=== PATIENT | female | born 1980 | race Caucasian/White ===

== ENCOUNTER 2020-10-25 08:18 | Emergency (ER) | payer OTHER, SELFPAY ==
--- NOTE | ~2020-10-25 | XR_ITS ---
EXAMINATION: XR toe 1st RT min 2V EXAM DATE: 10/25/2020 08:36 INDICATION: Hyperflexion injury, right 1st phalangeal pain. Initial encounter. TECHNIQUE: Right 1st finger frontal, lateral and oblique projections obtained and reviewed. There is no prior study for comparison. FINDINGS: There is acute closed posttraumatic oblique fracture through the head and neck of the right 1st proximal phalanx, into the interphalangeal joint. There is overlying soft tissue swelling. IMPRESSION: Right 1st proximal phalangeal head and neck nondisplaced intra-articular fracture. Reviewed, dictated and finalized at location A. IMPRESSION: Right 1st proximal phalangeal head and neck nondisplaced intra-art icular fracture.
[2020-10-25 08:30] VITALS: BP 135/87; PULSE 90; RESP 16; TEMP 36.6; O2SAT 99
--- NOTE | 2020-10-25 08:36 | ED.LOWEXIN ---
HPI - Extremity Injury (Lower) General Chief Complaint: Extremity Injury, Lower Stated Complaint: right foot injury Time Seen by Provider: 10/25/20 08:36 Source: patient and RN notes reviewed History of Present Illness HPI Narrative: Patient is a 40-year-old female who presents the urgent care with complaints of right great toe pain and bruising. Patient states that yesterday she tripped to running after her son and hit her daughter's hover board. Patient states that she has been elevating and using ice with Aleve. No other acute complaints. No acute distress noted. Patient aware of the plan of care. Some parts of this dictation were generated by voice recognition software and may contain typographical and/or grammatical inaccuracies. Related Data Allergies Allergy/AdvReac Type Severity Reaction Status Date / Time Influenza Virus Vaccines AdvReac Unknown Other Verified 10/25/20 08:42 Review of Systems Review of Systems: Narrative: CONSTITUTIONAL: Denies fever, chills, or sweats. EYES: Denies visual changes, redness, or discharge. ENT: Denies rhinorrhea, congestion, sore throat, or otalgia. CARDIOVASCULAR: Denies chest pain, palpitations, or edema. RESPIRATORY: Denies cough or dyspnea. GASTROINTESTINAL: Denies abdominal pain, nausea, vomiting, or diarrhea. GENITOURINARY: Denies dysuria or hematuria. SKIN: Denies rash or itching. MUSCULOSKELETAL: Reports of right great toe pain and bruising from fall NEUROLOGIC: Denies headache, numbness, or weakness. All other systems reviewed are negative, except as documented in HPI. PMFSH Comments At the time of my signature, I reviewed and agree with the nursing past medical, surgical, social, and family history. There is no relevant family history pertinent to the patient complaint. Exam Narrative: Exam Narrative: GENERAL: This is a well-nourished, well-developed patient, in no apparent distress. HEAD: normocephalic, atraumatic. EYES: PERRL. Sclera clear/white. Vision is grossly intact. EARS: External ears normal NOSE: External nose normal with no obvious nasal discharge, nares without redness, no rhinorrhea. THROAT: Mucous membranes moist NECK: Neck supple CARDIOVASCULAR: Regular rate and rhythm without murmurs, gallops, or rubs. RESPIRATORY: Clear to auscultation. Breath sounds equal bilaterally. No wheezes, rales, or rhonchi. SKIN: warm, intact with no suspicious lesions or rash, good texture and turgor. NEURO: awake, alert, and oriented to person, place and time. There were no obvious focal neurologic abnormalities. EXTREMITIES: Moderate ecchymosis and mild edema noted to the MCP to the distal right great toe. Positive strong right pedal pulse with capillary refill less than 2 seconds. Course Vital Signs Vital signs: Vital Signs Temperature 98 F 10/25/20 08:30 Pulse Rate 90 10/25/20 08:30 Respiratory Rate 16 10/25/20 08:30 Blood Pressure 135/87 10/25/20 08:30 Pulse Oximetry 99 10/25/20 08:30 Temperature 98 F 10/25/20 08:30 Pulse Rate 90 10/25/20 08:30 Respiratory Rate 16 10/25/20 08:30 Blood Pressure 135/87 10/25/20 08:30 Pulse Oximetry 99 10/25/20 08:30 Reviewed Procedures Other Procedure Procedure 1: Other Procedure: Ricardo wrap and postop shoe applied to the right foot. MDM - Extremity Injury (Lower) MDM Narrative Medical decision making narrative: Reviewed x-ray results with the patient. She is aware that x-ray was positive for a fracture. Advised the patient to wear the postop shoe as directed. Follow-up with the referred orthopedic today regarding a future appointment. Use Tylenol/tramadol as needed for pain. Be sure you are eating and drinking with the medications. Avoid any strenuous activity with long periods of time on your feet. Follow-up with your PCP within 2 to 5 days or for worsening symptoms or failure to improve. Differential Diagnosis Differential diagnosis: Likely ankle sprain and strain, fracture of hip,
--- NOTE | 2020-10-25 08:38 | PC.NURSE ---
PT DECLINED ICE FOR COMFORT AND WHEELCHAIR TO RADIOLOGY
--- NOTE | 2020-10-25 08:42 | PC.NURSE ---
PT DECLINED WHEELCHAIR TO RADIOLOGY
== END 2020-10-25 09:10 | disposition home or self-care (01) ==
PROVIDERS: Emergency Provider Nurse Practitioner Family; PCP Physician Assistant
DX: S92.414A Nondisplaced fracture of proximal phalanx of right great toe, initial encounter for closed fracture (principal); W18.30XA Fall on same level, unspecified, initial encounter; Y93.02 Activity, running
CPT/HCPCS: 73660; 99214; G0463

== ENCOUNTER 2022-06-07 13:43 | Emergency (ER) | payer OTHER, SELFPAY ==
--- NOTE | 2022-06-07 13:53 | ED.SKABFB ---
HPI - Skin/Abscess/Foreign Bdy General Chief complaint: Skin/Abscess/Foreign Body Stated complaint: Skin Problem Time Seen by Provider: 06/07/22 14:00 Source: patient Mode of arrival: ambulatory Limitations: no limitations History of Present Illness HPI narrative: Ms. Burrows is a 41-year-old female patient presenting to the clinic today with complaints of possible abscess to her genital area. She reports this has been going on for a few days but has gradually got bigger today. She denies any fever or chills. Related Data Allergies Allergy/AdvReac Type Severity Reaction Status Date / Time No Known Allergies Allergy Verified 06/07/22 14:05 Review of Systems Review of Systems: Pertinent positives per HPI. Patient denies any fever, chills, rash, headache, visual changes, dizziness, cough, runny nose, sore throat, shortness of breath, chest pain, palpitations, nausea, vomiting, diarrhea, constipation, abdominal pain, or any urinary issues. PMFSH Comments At the time of my signature, I reviewed and agree with the nursing past medical, surgical, social, and family history. There is no relevant family history pertinent to the patient complaint. Exam Narrative: General: Well-developed, well nourished, in no apparent distress Head: Normocephalic, atraumatic. Cardio: Regular rate and rhythm, s1 and s2 normal, no murmur appreciated. Resp: Clear to auscultation bilaterally, no rhonchi, rales, wheezing or rubs. Integumentary: [place], warm, and dry, abscess measuring 2 x 1-1/2 to the right inner thigh near the fold of the groin. Tender to palpation with erythema and induration. Has pustule head. Incision and drainage performed Course Course Emergency Course: Portions of this record may have been created with voice recognition software. Level of Care: Express Care Visit Vital Signs Vital signs: Vital Signs Temperature 36.7 C 06/07/22 13:56 Pulse Rate 92 06/07/22 13:56 Respiratory Rate 18 06/07/22 13:56 Blood Pressure 123/80 06/07/22 13:56 Pulse Oximetry 100 06/07/22 13:56 Oxygen Delivery Room Air 06/07/22 13:56 Temperature 36.7 C 06/07/22 13:56 Pulse Rate 92 06/07/22 13:56 Respiratory Rate 18 06/07/22 13:56 Blood Pressure 123/80 06/07/22 13:56 Pulse Oximetry 100 06/07/22 13:56 Oxygen Delivery Room Air 06/07/22 13:56 Vital signs reviewed Procedures Abscess I/D lower extremity: Date of Incision: 06/07/22 Side (if applicable): right Local Anesthetic: lidocaine 1% Amount of anesthesia used (mL): 4 Technique: incised with #15 blade Amount of fluid expressed (mL): 2 Irrigation: No Packing used?: none I&D Results: Pus and Blood Complications: pain Abcess I&D Additional Comments: Verbal consent obtained for incision and drainage. Risk and benefits explained and patient voiced understanding. Area was cleansed with technique air. Area was prepped and draped using sterile technique. 25 gauge needle was then used to instill ( 4) ml of lidocaine with epi into the wound edges. Patient tolerated well and anesthesia was appropriate. An 15 blade scalpel was then used to make a 0.5cm incision over the abscess. White bloody exudate expressed from cavity. Wound culture obtained and sent to lab. Patient tolerated procedure well. MDM - Skin/Abscess/Foreign Bdy MDM Narrative Medical decision making narrative: At the time of visit patient is resting comfortably on the exam table. incision and drainage of small abscess to the right inner groin/thigh. prescription for Bactrim DS was sent to the pharmacy. culture was obtained and sent to the lab. Supportive measures were discussed with the patient she voiced understanding discharge instructions agrees to treatment plan. Differential Diagnosis Differential diagnosis: Likely abscess of skin or subcutaneous tissue Discharge Plan Discharge Clinical Impression: Abscess of skin
[2022-06-07 13:56] VITALS: BP 123/80; PULSE 92; RESP 18; TEMP 36.7; O2SAT 100
== END 2022-06-07 14:25 | disposition home or self-care (01) ==
PROVIDERS: Emergency Provider Nurse Practitioner Family; PCP Physician Assistant
DX: L02.214 Cutaneous abscess of groin (principal)
CPT/HCPCS: 10060; 87070; 87205; 99213; G0463

== ENCOUNTER 2022-06-12 11:34 | Emergency (ER) | payer OTHER, SELFPAY ==
--- NOTE | 2022-06-12 11:36 | ED.URI ---
HPI - URI/Sore Throat General Chief Complaint: Upper Respiratory Infection Stated Complaint: cold flu Time Seen by Provider: 06/12/22 11:37 Source: patient and RN notes reviewed History of Present Illness HPI Narrative: patient is a 41-year-old female presents to urgent care with complaints of a sore throat that started last night and then woke up with sweats and watery eyes. Patient has been taking Robitussin and using Chloraseptic. Denies any fevers, nausea or vomiting. No other acute complaints. No acute distress noted. Patient aware of the plan of care. Some parts of this dictation were generated by voice recognition software and may contain typographical and/or grammatical inaccuracies. Related Data Home Medications Medication Instructions Recorded Confirmed No Home Medications 06/12/22 06/12/22 Allergies Allergy/AdvReac Type Severity Reaction Status Date / Time No Known Allergies Allergy Verified 06/12/22 11:51 Review of Systems Review of Systems: CONSTITUTIONAL: reports of chills and sweats EYES: reports of itchy watery eyes ENT: Reports a sore throat, postnasal drainage CARDIOVASCULAR: Denies chest pain, palpitations, or edema. RESPIRATORY: Denies cough or dyspnea. GASTROINTESTINAL: Denies abdominal pain, nausea, vomiting, or diarrhea. GENITOURINARY: Denies dysuria or hematuria. SKIN: Denies rash or itching. MUSCULOSKELETAL: Denies back pain, joint pain, or myalgia. NEUROLOGIC: Denies headache, numbness, or weakness. All other systems reviewed are negative, except as documented in HPI. PMFSH Comments At the time of my signature, I reviewed and agree with the nursing past medical, surgical, social, and family history. There is no relevant family history pertinent to the patient complaint. Exam Narrative: GENERAL: This is a well-nourished, well-developed patient, in no apparent distress. HEAD: normocephalic, atraumatic. EYES: PERRL. Sclera clear/white. Vision is grossly intact. clear drainage bilaterally EARS: External ears normal, auditory canals clear and without drainage, TMs normal without perforation. Hearing grossly intact. NOSE: External nose normal with no obvious nasal discharge, nares without redness, no rhinorrhea. THROAT: Mucous membranes moist, posterior pharynx clear. mild postnasal drainage NECK: Neck supple, non-tender without lymphadenopathy CARDIOVASCULAR: Regular rate and rhythm without murmurs, gallops, or rubs. RESPIRATORY: Clear to auscultation. Breath sounds equal bilaterally. No wheezes, rales, or rhonchi. SKIN: warm, intact with no suspicious lesions or rash, good texture and turgor. NEURO: awake, alert, and oriented to person, place and time. There were no obvious focal neurologic abnormalities. EXTREMITIES: No clubbing, cyanosis, or edema. Course Course Level of Care: Express Care Visit Vital Signs Vital signs: Vital Signs Temperature 97.8 F 06/12/22 11:43 Pulse Rate 83 06/12/22 11:43 Respiratory Rate 14 06/12/22 11:43 Blood Pressure 136/82 06/12/22 11:43 Pulse Oximetry 100 06/12/22 11:43 Oxygen Delivery Room Air 06/12/22 11:43 Temperature 97.8 F 06/12/22 11:43 Pulse Rate 83 06/12/22 11:43 Respiratory Rate 14 06/12/22 11:43 Blood Pressure 136/82 06/12/22 11:43 Pulse Oximetry 100 06/12/22 11:43 Oxygen Delivery Room Air 06/12/22 11:43 reviewed MDM - URI/Sore Throat MDM Narrative Medical decision making narrative: reviewed lab results with the patient. She is aware that flu and strep swabs were both negative. Educated mother on culture we will call within 72 hours if culture is positive antibiotics are necessary. Advised patient to use Tylenol/ ibuprofen as needed. Symptoms are consistent with viral upper respiratory infection. Use [id number] medication for relief such as Benadryl/ Zyrtec/ Claritin/Flonase. Use a humidifier at night. Follow-up with your PCP within 2-5 days or for worsening symptoms
[2022-06-12 11:43] VITALS: BP 136/82; PULSE 83; RESP 14; TEMP 36.6; O2SAT 100
== END 2022-06-12 12:20 | disposition home or self-care (01) ==
PROVIDERS: Emergency Provider Nurse Practitioner Family; PCP Physician Assistant
DX: J06.9 Acute upper respiratory infection, unspecified (principal)
CPT/HCPCS: 87081; 87804; 87880; 99213; G0463

== ENCOUNTER 2022-09-14 18:10 | Emergency (ER) | payer OTHER, SELFPAY ==
[2022-09-14 18:14] VITALS: BP 141/81; PULSE 103; RESP 20; TEMP 36.8; O2SAT 100
--- NOTE | 2022-09-14 18:26 | ED.EYEPROB ---
HPI - Eye Problem General Chief complaint: Eye Problems Stated complaint: swelling and pain in right eye History of Present Illness HPI Narrative: PATIENT PRESENTS STATING THAT SHE GOT SOMETHING IN HER EYE LAST NIGHT. PATIENT STATES SHE THINKS SHE GOT A PIECE OF GRAVEL OR SOMETHING IN HER RIGHT EYE LAST NIGHT. PATIENT STATES SHE IRRIGATED HER EYE LAST NIGHT AND FELT FINE BUT WAS SWOLLEN AND RED THIS MORNING. PATIENT DOES NOT WEAR CONTACTS OR GLASSES Related Data Allergies Allergy/AdvReac Type Severity Reaction Status Date / Time No Known Allergies Allergy Verified 09/14/22 18:23 Review of Systems Review of Systems: CONSTITUTIONAL: DENIES FEVER, CHILLS, OR SWEATS. EYES: DENIES VISUAL CHANGES, REDNESS, OR DISCHARGE. ENT: DENIES RHINORRHEA, CONGESTION, SORE THROAT, OR OTALGIA. CARDIOVASCULAR: DENIES CHEST PAIN, PALPITATIONS, OR EDEMA. RESPIRATORY: DENIES COUGH OR DYSPNEA. GASTROINTESTINAL: DENIES ABDOMINAL PAIN, NAUSEA, VOMITING, OR DIARRHEA. GENITOURINARY: DENIES DYSURIA OR HEMATURIA. SKIN: DENIES RASH OR ITCHING. MUSCULOSKELETAL: DENIES BACK PAIN, JOINT PAIN, OR MYALGIA. NEUROLOGIC: DENIES HEADACHE, NUMBNESS, OR WEAKNESS. PSYCHIATRIC: DENIES ANXIETY OR DEPRESSION. PMFSH Comments AT TIME OF SIGNATURE, AGREE WITH NURSING PAST MEDICAL, SURGICAL, SOCIAL AND FAMILY HISTORY. THERE IS NO RELEVANT FAMILY HISTORY PERTINENT TO THE PRESENTING COMPLAINT Exam Narrative: GENERAL: WELL-APPEARING, WELL-NOURISHED, AND IN NO ACUTE DISTRESS. HEAD: NORMOCEPHALIC, ATRAUMATIC. EYES: PERRLA AND EOMI. SEE PROCEDURE DOCUMENTATION ENT: NARES CLEAR, NO RHINORRHEA OR EPISTAXIS. MUCOUS MEMBRANES MOIST. NECK: SUPPLE. CHEST: CLEAR TO AUSCULTATION. NO RESPIRATORY DISTRESS. HEART: REGULAR RATE AND RHYTHM. NO MURMUR HEARD. NORMAL PERIPHERAL PULSES. ABDOMEN: SOFT, NONTENDER, NONDISTENDED, NORMAL ACTIVE BOWEL SOUNDS. EXTREMITIES: NORMAL RANGE OF MOTION. NO EDEMA. SKIN: WARM, DRY, NO RASH. NEURO: NO FOCAL DEFICITS. ALERT AND ORIENTED X3. NICOLAS COMA SCALE EYE OPENING: SPONTANEOUS 4 NICOLAS COMA SCALE MOTOR: OBEYS COMMANDS 6 NICOLAS COMA SCALE VERBAL: ORIENTED 5 NICOLAS COMA SCALE TOTAL 15 Course Course Level of Care: Express Care Visit Vital Signs Vital signs: Vital Signs Temperature 36.8 C 09/14/22 18:14 Pulse Rate 103 H 09/14/22 18:14 Respiratory Rate 20 09/14/22 18:14 Blood Pressure 141/81 H 09/14/22 18:14 Pulse Oximetry 100 09/14/22 18:14 Oxygen Delivery Room Air 09/14/22 18:14 Temperature 36.8 C 09/14/22 18:14 Pulse Rate 103 H 09/14/22 18:14 Respiratory Rate 20 09/14/22 18:14 Blood Pressure 141/81 H 09/14/22 18:14 Pulse Oximetry 100 09/14/22 18:14 Oxygen Delivery Room Air 09/14/22 18:14 PLEASE HARDY SCHEDULE A FOLLOWUP VISIT WITH YOUR PERSONAL PHYSICIAN FOR FURTHER EVALUATION AND TREATMENT. INCLUDING RECHECK AND DISCUSSION OF YOUR BLOOD PRESSURE. IF YOUR SYMPTOMS PERSIST, CHANGE OR WORSEN SIGNIFICANTLY BEFORE YOU CAN CONTACT YOUR PERSONAL PHYSICIAN THEN PLEASE, WITHOUT DELAY, GO TO THE EMERGENCY DEPARTMENT FOR FURTHER EVALUATION Procedures FB Removal Eye Foreign Body #1: Topical anesthetic used: tetracaine Technique: irrigation Foreign Body Removal Narrative: PATIENT PLACED IN SUPINE POSITION AND TETRACAINE APPLIED TO RIGHT EYE AND THEN EYE STAINED. EYE EXAMINE WITH MCGRAW LAMP AND CORNEAL ABRASION WAS NOTED TO RIGHT EYE. NO FOREIGN BODY FOUND. PATIENT TOLERATED WELL. Discharge Plan Discharge Clinical Impression: Corneal abrasion Patient Disposition: Home, Self-Care Condition: Stable Instructions: Antibiotic Form, Corneal Abrasion (DC) Additional Instructions: EYEDROPS PRESCRIBED TYLENOL AND IBUPROFEN NEEDED FOR PAIN OR DISCOMFORT FOLLOW-UP WITH FAMILY EYE DOCTOR IN THE NEXT 24-48 HOURS FOR RE-EVALUATION IF ANY NEW OR WORSENING SYMPTOMS GO TO EMERGENCY ROOM IMMEDIATELY FOR FURTHER EVALUATION TREATMENT Prescriptions: New ciprofloxacin HCl 0.3 %
== END 2022-09-14 18:29 | disposition home or self-care (01) ==
PROVIDERS: Emergency Provider Nurse Practitioner Family
DX: S05.01XA Injury of conjunctiva and corneal abrasion without foreign body, right eye, initial encounter (principal); X58.XXXA Exposure to other specified factors, initial encounter
CPT/HCPCS: 99213; A9270; G0463

== ENCOUNTER 2022-10-21 15:39 | Emergency (ER) | payer OTHER, SELFPAY ==
[2022-10-21 15:42] VITALS: BP 131/81; PULSE 90; RESP 20; TEMP 36.7; O2SAT 98
--- NOTE | 2022-10-21 16:50 | ED.GENADULT ---
HPI - General Adult General Chief complaint: Extremity Problem,Nontraumatic Stated complaint: right shoulder pain Source: patient History of Present Illness HPI narrative: 42-year-old female presents to urgent care with complaints of right posterior shoulder pain that radiates down her right arm. Patient states she has been having this pain ever since Friday. 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 Patient denies any specific injury to cause her pain. Denies any posterior neck pain, chest pain, shortness of breath, or vomiting. Patient took 800 mg ibuprofen this morning without relief. Related Data Home Medications Medication Instructions Recorded Confirmed amoxicillin 500 mg capsule mg 10/21/22 clarithromycin 500 mg tablet mg 10/21/22 fluconazole 200 mg tablet mg 10/21/22 ondansetron HCl 4 mg tablet mg 10/21/22 pantoprazole 40 mg tablet,delayed mg PO 10/21/22 release Allergies Allergy/AdvReac Type Severity Reaction Status Date / Time No Known Allergies Allergy Verified 09/14/22 18:23 Review of Systems Review of Systems: CONSTITUTIONAL: Denies fever, chills, or sweats. EYES: Denies visual changes, redness, or discharge. ENT: Denies otalgia and sore throat CARDIOVASCULAR: Denies chest pain, palpitations, or edema. RESPIRATORY: Denies cough or dyspnea. GASTROINTESTINAL: Denies abdominal pain, nausea, vomiting, or diarrhea. GENITOURINARY: Denies dysuria or hematuria. SKIN: Denies rash or itching. MUSCULOSKELETAL: Right posterior shoulder pain NEUROLOGIC: Denies headache, numbness, or weakness. Pertinent positives per HPI. PMFSH Comments At the time of my signature, I reviewed and agree with the nursing past medical, surgical, social, and family history. There is no relevant family history pertinent to the patient complaint. Exam Narrative: GENERAL: This is a well-nourished, well-developed patient, in no apparent distress. HEAD: normocephalic, atraumatic. EYES: Sclera clear/white. Vision is grossly intact. EARS: External ears normal, auditory canals clear and without drainage. Hearing grossly intact. NOSE: External nose normal with no obvious nasal discharge, nares without redness, no rhinorrhea. CARDIOVASCULAR: Regular rate RESPIRATORY: No respiratory distress SKIN: warm, intact with no suspicious lesions or rash, good texture and turgor. NEURO: awake, alert, and oriented to person, place and time. There were no obvious focal neurologic abnormalities. EXTREMITIES: Tenderness to right posterior, inferior,shoulder. Course Course Level of Care: Express Care Visit Vital Signs Vital signs: Vital Signs Temperature 98.1 F 10/21/22 15:42 Pulse Rate 90 10/21/22 15:42 Respiratory Rate 20 10/21/22 15:42 Blood Pressure 131/81 10/21/22 15:42 Pulse Oximetry 98 10/21/22 15:42 Oxygen Delivery Room Air 10/21/22 15:42 Temperature 98.1 F 10/21/22 15:42 Pulse Rate 90 10/21/22 15:42 Respiratory Rate 20 10/21/22 15:42 Blood Pressure 131/81 10/21/22 15:42 Pulse Oximetry 98 10/21/22 15:42 Oxygen Delivery Room Air 10/21/22 15:42 Reviewed Medical Decision Making MDM Narrative Medical decision making narrative: Take steroids as directed. May take muscle relaxers at nighttime. Do not drive while taking muscle relaxers. May take 800 mg of ibuprofen every 8 hours with food. Differential Diagnosis Differential Diagnosis: Cervical radiculopathy, radiculopathy, shoulder strain Vital Signs Vital Signs: Vital Signs Temperature 98.1 F 10/21/22 15:42 Pulse Rate 90 10/21/22 15:42 Respiratory Rate 20 10/21/22 15:42 Blood Pressure 131/81 10/21/22 15:42 Pulse Oximetry 98 10/21/22 15:42 Oxygen Delivery Room Air 10/21/22 15:42 Temperature 98.1 F 10/21/22 15:42 Pulse Rate 90 10/21/22 15:42 Respiratory Rate 20 10/21/22 15:42 Blood Pressure 131/81 10/21/22 15:42 Pulse
[2022-10-21] MEDS: KETOROLAC 30 MG/ML VIAL (*BKC) IM (17:03)
== END 2022-10-21 17:19 | disposition home or self-care (01) ==
PROVIDERS: Emergency Provider Nurse Practitioner Family; PCP Physician Assistant
DX: S46.911A Strain of unspecified muscle, fascia and tendon at shoulder and upper arm level, right arm, initial encounter (principal); X50.0XXA Overexertion from strenuous movement or load, initial encounter; Y99.0 Civilian activity done for income or pay
CPT/HCPCS: 96372; 99213; G0463; J1885

== ENCOUNTER 2023-02-04 13:08 | Emergency (ER) | payer OTHER, SELFPAY ==
--- NOTE | ~2023-02-04 | XR_ITS ---
AP and oblique views of the left ribs Clinical History: Pain Findings: No rib fracture is seen. Osseous alignment is anatomic. Lungs are clear, without focal cons olidation or pleural effusion. Cardiomediastinal contour is within normal limits. Soft tissues are un remarkable. Impression: No rib fracture is seen. Reviewed, dictated and finalized at [facility]. Impression: No rib fracture is seen.
[2023-02-04 13:13] VITALS: BP 127/98; PULSE 78; RESP 18; TEMP 36.4; O2SAT 100
[2023-02-04 13:16] VITALS: BP 127/98; PULSE 78; RESP 18; TEMP 36.4; O2SAT 100
--- NOTE | 2023-02-04 13:34 | PC.NURSE ---
UNABLE TO OFFER ICE FOR COMFORT DUE TO BROKEN ICE MACHINES
--- NOTE | 2023-02-04 13:50 | ED.BACK ---
HPI - Back Pain/Injury General Chief Complaint: Back Pain/Injury Stated Complaint: left side rib pain History of Present Illness HPI Narrative: Pt is a 42 y/o female, presents to with left lateral posterior rib pain that began as she lifted a trailer. she believes she fractured a rib. She has pain with movement, she has no SOB or focal motor weakness. She denies skin rashes. She is taking Ibuprofen for pain with some relief. She denies any other modifying factors or chance of Related Data Allergies Allergy/AdvReac Type Severity Reaction Status Date / Time No Known Allergies Allergy Verified 09/14/22 18:23 Review of Systems Musculoskeletal: Musculoskeletal: Reports as per HPI Exam Narrative: rib imaging unremarkable for acute findings, plan to discharge home with RICE, Ibuprofen at home and Robaxin. Pt is agreeable with plan Const: General: healthy appearing, no acute distress and alert Nutritional Appearance: obese Orientation/consciousness: patient oriented x3 Limitations: no limitations HENMT: Head: normal to inspection Ears: external ears normal and TM's normal bilaterally Face/Nose/Sinus: Normal external nose present and Normal nares present Face and sinus: normal facial exam and sinuses nontender Mouth: Yes Normal oral and palatal mucosa present Teeth and gingiva: dentition normal Throat: posterior oropharynx normal and uvula midline Eyes: Conjunctivae: conjunctivae normal Pupils: Equal, round and reactive pupils present EOM: EOMs intact bilaterally Neck: Neck: normal visual inspection and no lymphadenopathy Chest: Chest palpation & inspection: normal inspection of the chest Other: pt is TTP over the left lateral posteroir ribs, no crepitus or subq emphysema, no deformity, no rash Resp: Effort & Inspection: normal respiratory effort Auscultation: clear to auscultation bilaterally Cardio: Rate: regular rate Rhythm: regular rhythm Back/Spine/Pelvis: Back: no CVA tenderness Other: left chest wall TTP, see above Skin: General skin exam: normal color Rashes: no rashes Neuro: General: patient oriented x3, moves all extremities, no meningeal signs, no focal motor deficits and CN's II-XI intact bilaterally Course Course Level of Care: Express Care Visit ([id number]) Vital Signs Vital signs: Vital Signs Temperature 36.4 C 02/04/23 13:13 Pulse Rate 78 02/04/23 13:13 Respiratory Rate 18 02/04/23 13:13 Blood Pressure 127/98 H 02/04/23 13:13 Pulse Oximetry 100 02/04/23 13:13 Oxygen Delivery Room Air 02/04/23 13:13 Temperature 36.4 C 02/04/23 13:16 Pulse Rate 78 02/04/23 13:16 Respiratory Rate 18 02/04/23 13:16 Blood Pressure 127/98 H 02/04/23 13:16 Pulse Oximetry 100 02/04/23 13:16 Oxygen Delivery Room Air 02/04/23 13:16 MDM - Back Pain/Injury MDM Narrative Medical decision making narrative: imaging unremarkable Differential Diagnosis Differential diagnosis: Likely other (chest wall strain, fracture) Discharge Plan Discharge Clinical Impression: Acute thoracic myofascial strain Qualifiers: Encounter type: initial encounter Qualified Code(s): S29.019A - Strain of muscle and tendon of unspecified wall of thorax, initial encounter Patient Disposition: Home, Self-Care Condition: Stable Instructions: Antibiotic Form, Thoracic Back Strain (ED) Additional Instructions: REST, ICE THE AREA OFF AND ON FOR 2 DAYS, TAKE IBUPROFEN DIRECTED OVER THE COUNTER, ROBAXIN FOR MUSCLE SPASM RELIEF. AVOID HEAVY LIFTING FOR A FEW DAYS OR UNTIL PAIN IMPROVES. FOLLOW UP WITH YOUR PRIMARY CARE PROVIDER IN ONE WEEK IF PAIN IS NOT RESOLVING Prescriptions: New methocarbamol 500 mg tablet 500 mg PO QID PRN (Reason: spasms) Qty: 20 0RF Follow-up/Referrals: Yung,JASPER Noriega [Primary Care Provider] - Stand Alone Forms: Work/School Release IP Time of Disposition: 13:57
== END 2023-02-04 14:05 | disposition home or self-care (01) ==
PROVIDERS: Emergency Provider Nurse Practitioner Family; PCP Physician Assistant
DX: S29.012A Strain of muscle and tendon of back wall of thorax, initial encounter (principal); X50.0XXA Overexertion from strenuous movement or load, initial encounter
CPT/HCPCS: 71100; 99213; G0463

== ENCOUNTER 2023-08-12 11:45 | Emergency (ER) | payer OTHER, MEDICAID, SELFPAY ==
[2023-08-12 11:48] VITALS: BP 123/91; PULSE 79; RESP 20; TEMP 36.4; O2SAT 100
--- NOTE | 2023-08-12 12:46 | ED.EAR ---
HPI - Ear Problem General Chief complaint: Ear Stated complaint: Right Ear Problem Source: patient Mode of arrival: ambulatory Limitations: no limitations History of Present Illness HPI Narrative: 42-year-old female presented for complaint of right ear pain for 3 days. Endorses decreased hearing, ringing, and noted blood to the canal 2 days ago. She used drops from [facility], which she states caused even more pain. Taking Tylenol for pain. Denies dizziness, nausea, nasal congestion or fever. MD Complaint: ear pain Related Data Allergies Allergy/AdvReac Type Severity Reaction Status Date / Time No Known Allergies Allergy Verified 08/12/23 11:54 Review of Systems Review of Systems: CONSTITUTIONAL: Denies malaise, chills, or fever. EYES: Denies visual changes, redness, or discharge. ENT: Denies rhinorrhea, congestion, sinus pain, and sore throat. Reports ear pain CARDIOVASCULAR: Denies chest pain, palpitations, or edema. RESPIRATORY: Denies cough or dyspnea. GASTROINTESTINAL: Denies abdominal pain, nausea, vomiting, diarrhea SKIN: Denies rash or itching. MUSCULOSKELETAL: Denies myalgia. NEUROLOGIC: Denies headache. All systems reviewed & are unremarkable except as noted in HPI and below PMFSH Comments At time of signature, agree with nursing past medical, surgical, social and family history. There is no relevant family history pertinent to the presenting complaint Exam Narrative: GENERAL: Well-appearing EYES: PERRLA, conjunctivae clear ENT: Nares clear. Mucous membranes moist. Left TM pearly lei with dull light reflex; Right TM erythematous, bulging, visualized portion is intact; pt is minimally tolerant of exam. canal not erythematous, no drainage no tragal or mastoid tenderness. Oropharynx not erythematous without lesions. CHEST: Clear to auscultation, breath sounds equal. No wheezing, rhonchi, rales, or stridor. No respiratory distress, speaks in full sentences. HEART: Regular rate and rhythm. No murmur heard. SKIN: Warm, dry, no rash. NEURO: Alert and oriented x3. PSYCH: Normal mood and affect Course Course Emergency Course: Patient is aware of diagnosis, understands and agrees to treatment plan. Anticipatory guidance given. Patient agrees to follow-up as directed and is aware of reasons to seek care at the emergency department. Portions of this record may have been created with voice recognition software Level of Care: Express Care Visit Vital Signs Vital signs: Vital Signs Temperature 97.6 F 08/12/23 11:48 Pulse Rate 79 08/12/23 11:48 Respiratory Rate 20 08/12/23 11:48 Blood Pressure 123/91 H 08/12/23 11:48 Pulse Oximetry 100 08/12/23 11:48 Oxygen Delivery Room Air 08/12/23 11:48 Temperature 97.6 F 08/12/23 11:48 Pulse Rate 79 08/12/23 11:48 Respiratory Rate 20 08/12/23 11:48 Blood Pressure 123/91 H 08/12/23 11:48 Pulse Oximetry 100 08/12/23 11:48 Oxygen Delivery Room Air 08/12/23 11:48 Reviewed Medical Decision Making MDM Narrative Medical decision making narrative: Discussed physical exam findings consistent with right AOM. Declined Rx motrin. Advised supportive measures and signs/symptoms to go to the ER. Patient is appropriate for outpatient treatment and follow-up. Differential Diagnosis Differential Diagnosis: Coronavirus, strep pharyngitis, allergic rhinitis, upper respiratory tract infection, sinusitis, rhinosinusitis, nasopharyngitis, viral pharyngitis, otitis media, otitis externa, eustachian tube dysfunction, foreign body, cerumen impaction. Vital Signs Vital Signs: Vital Signs Temperature 97.6 F 08/12/23 11:48 Pulse Rate 79 08/12/23 11:48 Respiratory Rate 20 08/12/23 11:48 Blood Pressure 123/91 H 08/12/23 11:48 Pulse Oximetry 100 08/12/23 11:48 Oxygen Delivery Room Air 08/12/23 11:48 Temperature 97.6 F 08/12/23 11:48 Pulse Rate 79 08/12/23 11:48 Respiratory Rate 20 08/12/23 11:48 Bloo
== END 2023-08-12 12:55 | disposition home or self-care (01) ==
PROVIDERS: Emergency Provider Nurse Practitioner Family; PCP Physician Assistant
DX: H66.91 Otitis media, unspecified, right ear (principal)
CPT/HCPCS: 99213; G0463

== ENCOUNTER 2024-03-09 12:24 | Emergency (ER) | payer OTHER, MEDICAID, SELFPAY ==
--- NOTE | ~2024-03-09 | XR_ITS ---
XR hand LT min 3V Ordering provider: Joy Ballard APRN History: . injury; pain; numbness; ltd ROM 2nd 3rd digit . Comparison: None. FINDINGS: BONES: No acute fracture or dislocation. JOINT SPACES: Narrowing of the distal interphalangeal joints of the second and third fingers. SOFT TISSUES: Unremarkable. IMPRESSION: No acute osseous abnormality left hand. Reviewed, dictated and finalized at location A.
--- NOTE | 2024-03-09 12:27 | ED.URI ---
HPI - URI/Sore Throat General Chief Complaint: Extremity Injury, Upper Stated Complaint: left hand injury Time Seen by Provider: 03/09/24 12:31 Source: patient, RN notes reviewed and old records reviewed Mode of arrival: ambulatory Limitations: no limitations History of Present Illness HPI Narrative: 43-year-old female to [facility] for complaint left hand pain status post fall 3:00 a.m. this morning. Patient states that she tripped while taking her trash can to the curb and fell onto her left dorsal hand and left dorsal forearm. Patient complaint of no ROM and numbness to the 2nd and 3rd digit of left hand. Patient has attempted to treat at home with ice, ibuprofen, and Tylenol with little relief. Patient endorses history of trigger finger surgery and carpal tunnel surgery on same hand approximately 8 years ago. Patient resting comfortably in no acute distress. Related Data Home Medications Medication Instructions Recorded Confirmed No Home Medications 03/09/24 03/09/24 Allergies Allergy/AdvReac Type Severity Reaction Status Date / Time Influenza Virus Vaccines AdvReac Unknown Other Verified 03/09/24 12:44 Review of Systems Review of Systems: All systems reviewed & are unremarkable except as noted in HPI and below Constitutional: Constitutional: Reports no additional constitutional complaints Eyes: Eyes: Reports no additional eye complaints ENT: Reports system reviewed and no additional complaints, except as documented Cardiovascular: Cardiovascular: Reports no additional cardiovascular complaints, Denies chest pain and Denies dyspnea Respiratory: Respiratory: Reports no additional respiratory complaints, Denies cough and Denies dyspnea Musculoskeletal: Musculoskeletal: Reports as per HPI, Denies deformity, Reports limited range of motion (2nd and 3rd digit left hand) and Reports numbness Neurologic: Reports system reviewed and no additional complaints, except as documented Psychiatric: Psychiatric: Reports no additional psychiatric complaints PMFSH Comments At the time of my signature, I reviewed and agree with the nursing past medical, surgical, social, and family history. There is no relevant family history pertinent to the patient complaint. Exam Const: General: cooperative, no acute distress, alert and well nourished Nutritional Appearance: well nourished Orientation/consciousness: patient oriented x3 Limitations: no limitations HENMT: Head: normal to inspection Ears: external ears normal Face/Nose/Sinus: Normal external nose present, Normal nares present, normal facial exam, No erythema and No edema Face and sinus: normal facial exam, no erythema and no edema Mouth: Yes Normal oral and palatal mucosa present Eyes: General: appearance normal, both eyes and all related structures Neck: Neck: normal visual inspection, full ROM and no meningeal signs Chest: Chest palpation & inspection: normal inspection of the chest Resp: Effort & Inspection: normal respiratory effort and able to speak in complete sentences Cardio: Jugular venous distension: no JVD Rate: regular rate Rhythm: regular rhythm Back/Spine/Pelvis: Cervical Spine: cervical ROM normal Skin: General skin exam: normal color, no rashes or lesions noted and turgor normal Neuro: General: patient oriented x3, gait normal, moves all extremities and no meningeal signs Speech: normal speech Gait exam (Neuro): Normal gait present Extrem: General: normal to inspection and capillary refill normal Left upper extremity: hand normal capillary refill, tendon exam abnormal and abnormal ROM of finger (2nd and 3rd digit); no unusual warmth, no abrasions, no lacerations and no ecchymosis Psych: Appearance: grossly normal and well kempt Course Course Emergency Course: Some parts of this dictation were generated by voice recognition software and may contain typographical and/or grammatical inaccuracies. Level of Care: Express Care Visit Vi
[2024-03-09 12:32] VITALS: BP 128/77; PULSE 86; RESP 20; TEMP 36.6; O2SAT 100
== END 2024-03-09 13:30 | disposition home or self-care (01) ==
PROVIDERS: Emergency Provider Nurse Practitioner Family; PCP Physician Assistant
DX: S63.92XA Sprain of unspecified part of left wrist and hand, initial encounter (principal); S66.912A Strain of unspecified muscle, fascia and tendon at wrist and hand level, left hand, initial encounter; W01.0XXA Fall on same level from slipping, tripping and stumbling without subsequent striking against object, initial encounter; S63.610A Unspecified sprain of right index finger, initial encounter; S63.612A Unspecified sprain of right middle finger, initial encounter
CPT/HCPCS: 73130; 99213; G0463

== ENCOUNTER 2024-07-20 09:25 | Emergency (ER) | payer OTHER, MEDICAID, SELFPAY ==
[2024-07-20 09:31] VITALS: BP 126/95; PULSE 103; RESP 16; TEMP 36.4; O2SAT 100
--- NOTE | 2024-07-20 09:31 | ED.SKABFB ---
HPI - Skin/Abscess/Foreign Bdy General Chief complaint: Skin/Abscess/Foreign Body Stated complaint: Skin Sore Time Seen by Provider: 07/20/24 09:37 Source: patient and RN notes reviewed Mode of arrival: ambulatory Limitations: dementia History of Present Illness HPI narrative: 43-year-old female presents concern for a sore on her left breast. She reports she noticed a small red dry area 1 week ago and last night she noticed it was itchy and when she scratched at it was large, red, tender. She denies any drainage. She denies any nipple discharge or palpable lumps. MD complaint: other (Redness) Related Data Home Medications ?Medication ?Instructions ?Recorded ?Confirmed ?Last Taken ?Type atorvastatin 20 mg tablet mg 07/20/24 Unknown History buspirone 10 mg tablet mg 07/20/24 Unknown History Allergies Allergy/AdvReac Type Severity Reaction Status Date / Time Influenza Virus Vaccines AdvReac Unknown Other Verified 03/09/24 12:44 Review of Systems Review of Systems: CONSTITUTIONAL: Denies malaise, chills, sweats, or fever. EYES: Denies redness, or discharge. ENT: Denies rhinorrhea, congestion, swollen lips, swollen tongue CARDIOVASCULAR: Denies chest pain, palpitations, or edema. RESPIRATORY: Denies cough or dyspnea. GASTROINTESTINAL: Denies abdominal pain, nausea, vomiting SKIN: Reports a red, swollen, tender area on the left breast. Denies purulent drainage, vesicles, bullae, numbness, pain beyond proportion MUSCULOSKELETAL: Denies joint pain or myalgia. NEUROLOGIC: Denies headache. All systems reviewed & are unremarkable except as noted in HPI and below PMFSH Comments At time of signature, agree with nursing past medical, surgical, social and family history. There is no relevant family history pertinent to the presenting complaint Exam Narrative: GENERAL: Well-appearing, well-nourished, and in no acute distress. HEAD: Normocephalic, atraumatic. EYES: PERRLA, conjunctivae clear ENT: Mucous membranes moist. NECK: Supple. No lymphadenopathy CHEST: Clear to auscultation. No respiratory distress. HEART: Regular rate and rhythm. SKIN: Warm, dry. 3.5 cm diameter area Erythema, induration, tenderness, warmth with sharp margins noted to the left breast with no fluctuation. No vesicles, bullae, necrosis, ecchymosis, crepitus noted. NEURO: Alert and oriented x3. PSYCH: Normal mood and affect Chest: Chest/axillae images:  1. 3.5 cm diameter area Erythema, induration, tenderness, warmth with sharp margins noted to the left breast with no fluctuation Course Course Emergency Course: Patient has a mammogram scheduled next month, her last mammogram was normal. Patient was advised to follow-up with her primary care doctor for follow-up. Patient is aware of diagnosis, understands and agrees to treatment plan. Anticipatory guidance given. Patient agrees to follow-up as directed and is aware of reasons to seek care at the emergency department. Portions of this record may have been created with voice recognition software Level of Care: Express Care Visit Vital Signs Vital signs: Reviewed. MDM - Skin/Abscess/Foreign Bdy MDM Narrative Medical decision making narrative: I evaluated this in the [facility] care. History is obtained from patient who is an independent historian and physical exam was performed.? Available medical records were reviewed. ? Exam findings and relevant testing show no acute concerns or changes; patient is non-toxic appearing and is in no distress. No risk factors or findings concerning for epidural abscess, diskitis, vertebral osteomyelitis, cord compression, cauda equina, vertebral fracture or bone malignancy, AAA, or pyelonephritis. Patient instructed to consider further imaging and workup through their primary care physician as an outpatient if symptoms persist. Does not appear at this time to be erythema multiforme, bullous, SJS, TEN; no evidence at this time to suggest RMSF, NSTI, endocarditis or Lyme disease; patient looks well, nontoxic and is tolerating oral intake; no neurologic signs or symptoms; no headache, photophobia or neck pain; afebrile.? Patient does not have history of of penetrating trauma, laceration, blunt trauma, recent surgery, immunosuppression, malignancy, obesity, alcoholism, corticosteroid use.? Discussed the importance of follow-up, patient agrees; question, cellulitis versus necrotizing soft tissue infection versus abscess.?? Patient is appropriate for outpatient treatment and follow-up. Critical Care Time Critical Care Time Critical Care Time: No Discharge Plan Discharge Clinical Impression: Cellulitis Patient Disposition: Home, Self-Care Condition: Stable Instructions: Antibiotic Form, Cellulitis (ED) Additional Instructions: Please follow up with your Primary Care Doctor within 48-72 hours - call for an appointment. Rest and elevate affected area; apply moist heat 3-4 times daily for 10-15 minutes. Take Motrin 600mg every 8 hours with food for pain. Please take Antibiotics as directed. If you experience any worsening redness, swelling, streaking (red lines), fever or chills please go to the ER Patient Language: Maori Prescriptions: New penicillin V potassium 500 mg tablet 500 mg PO Q12H 10 Days Qty: 20 0RF No Action atorvastatin 20 mg tablet buspirone 10 mg tablet Follow-up/Referrals: Yung,JASPER Noriega [Primary Care Provider] - Time of Disposition: 09:42
--- OUTSIDE RECORDS SUMMARY | 2024-07-20 10:17 | XMS_ITS | Continuity of Care Document ---
Author Name Tadeo Corbin Address [address] [place] [address] Organization Unknown Address [address] [place] [address] Medications Problems
--- OUTSIDE RECORDS SUMMARY | 2024-07-20 10:17 | XMS_ITS | Data Portability ---
Author Organization [facility] Address [address] [place] [address] Care Team Providers Care Mold Shaker Name Role Phone ISAIAS BARRAGAN Primary Care Provider Assessment No assessment recorded. Plan of Treatment Reminders Order Date Submit Date Provider Last Modified By Organization Details Last Modified Time Details Appointments None recorded. Lab TSH + free T4, serum 2022 023 [facility], [address] [place] [address] [place], [place], [address], 3 08:23:37 amylase + lipase, serum 2022 023 [facility], [address] [place] [address], [address], 3 08:23:37 CBC 2022 023 [facility], [address] [place] [address] 2, [place], [address], 3 06:15:54 CMP, serum or plasma 2022 023 [facility], [address] [facility], [facility] 2, [place], [address], 3 06:15:53 lipid panel, serum 2022 023 [facility], [address] [facility], [facility] 2, [place], [address], 3 06:15:53 CBC 2024 025 [facility], [address] [facility], [address], [place], [address], 5 09:14:21 CMP, serum or plasma 2024 025 [facility], [address] [facility], [address], [place], [address], 5 09:14:19 lipid panel, serum 2024 025 [facility], [address] [facility], [address], [place], [address], 5 09:14:18 TSH + free T4, serum 2024 025 [facility], [address] [facility], [facility] 2, [place], [address], 5 09:14:16 Referral None recorded. Procedures None recorded. Surgeries None recorded. Imaging None recorded. Medication Orders Wegovy 0.5 mg/0.5 mL subcutaneo us pen injector 2022 023 [facility] #[id number], [address], [place], [place], [id number], 5 14:48:01 Diflucan 200 mg tablet 2022 023 [facility] #[id number], [address], [place], [place], [id number], 5 14:47:46 buspirone 10 mg tablet 2024 025 [id number], [address], [place], [place], [id number], 5 15:11:59 Patient TargetsNo targets recorded. Patient Instructions Encounter Date Encounter Id Patient Instructions Last Modified By Organization Details Last Modified Time 09/30/2022 [id number] abdominal pain: care instructions jnanney Not available 09/30/2022 10:38:59 A healthy lifestyle: care instructions jnanney Not available 09/30/2022 10:38:59 10/09/2022 [id number] A healthy lifestyle: care instructions jnanney Not available 10/09/2022 17:50:16 10/17/2022 [id number] A healthy lifestyle: care instructions jnanney Not available 10/17/2022 16:16:53 candidiasis: car e instructions jnanney Not available 10/17/2022 16:16:53 07/13/2024 [id number] A healthy lifestyle: care instructions jnanney Not available 07/13/2024 15:06:33 Reason for Referral None Reported. Results Created Date Observation Date Name Description Value Unit Range Abnormal Flag Note LastModifiedBy Organization Detail LastModifiedTime 10/01/1909/30/2022 LIPID PANEL cholesterol, total 235.3 mg/dL 140.0- 200.0 above high normal Not Available [facility] ([facility]) [address] [place], [address], 10/01/2022 06:15:53 10/01/1909/30/2022 LIPID PANEL triglyceride s 131 mg/dL <=150 Not Available [facility] ([facility]) [address] [place], [address], 10/01/2022 06:15:53 10/01/1909/30/2022 LIPID PANEL HDL cholesterol 46.9 mg/dL 40.0-1 00.0 Not Available [facility] ([facility]) [address] [place], [address], 10/01/2022 06:15:53 10/01/1909/30/2022 LIPID PANEL VLDL cholesterol sixto 26.20 mg/dL 5.00-4 0.00 Not Available [facility] ([facility]) [address] [place], [address], 10/01/2022 06:15:53 10/01/1909/3009/30/2022 LIPID PANEL LDL chol calc ([facility]) 164.7 Not Available [facility] ([facility]) [address] [place], [address], 10/01/2022 06:15:53 10/01/19 23 09/30/2022 COMP. METAB OLIC PANEL (14) glucose 84 mg/dL 65-99 ANION GP 17.0 mmol/ L N OSMOL 276.0 mOsM/ L N REFER ENCE RANGE : 275.0 -301. 0 Not Available [facility] ([facility]) [address] [place], [address], 10/01/2022 06:15:53 10/01/19 23 09/30/2022 COMP. METAB OLIC PANEL (14) BUN 10 mg/dL 8-26 Not Available [facility] ([facility]) [address] [place], [address], 10/01/2022 06:15:53 10/01/19 23 09/30/2022 COMP. METAB OLIC PANEL (14) creatinine 0.65 mg/dL 0.50-1 .40 Not Available [facility] ([facility]) [address] [place], [address], 10/01/2022 06:15:53 10/01/19 23 09/30/2022 COMP. METAB OLIC PANEL (14) eGFR 114 mL/mi n/1.7 3 >=60 Not Available [facility] ([facility]) [address] [place], [address], 10/01/2022 06:15:53 10/01/19 23 09/30/2022 COMP. METAB OLIC PANEL (14) BUN/creatini ne ratio 15.5 Not Available [facility] ([facility]) [address] [place], [address], 10/01/2022 06:15:53 10/01/19 23 09/30/2022 COMP. METAB OLIC PANEL (14) sodium 139.0 mmol/ L 136.0- 144.0 Not Available [facility] ([facility]) [address] [facility] [place], [address], 10/01/2022 06:15:53 10/01/19 23 09/30/2022 COMP. METAB OLIC PANEL (14) potassium 4.3 mmol/ L 3.5-5. 3 Not Available [facility] ([facility]) [address] [facility] [place], [address], 10/01/2022 06:15:53 10/01/19 23 09/30/2022 COMP. METAB OLIC PANEL (14) chloride 103 mmol/ l 101-11 1 Not Available [facility] ([facility]) [address] [facility] [place], [address], 10/01/2022 06:15:53 10/01/19 23 09/30/2022 COMP. METAB OLIC PANEL (14) carbon dioxide, total 23.2 mmol/ L 21.0-3 2.0 Not Available [facility] ([facility]) [address] [facility] [place], [address], 10/01/2022 06:15:53 10/01/19 23 09/30/2022 COMP. METAB OLIC PANEL (14) calcium 9.6 mg/dL 8.2-10 .0 Not Available [facility] ([facility]) [address] [facility] [place], [address], 10/01/2022 06:15:53 10/01/19 23 09/30/2022 COMP. METAB OLIC PANEL (14) protein, total 7.3 g/dL 6.7-8. 2 Not Available [facility] ([facility]) [address] [facility] [place], [address], 10/01/2022 06:15:53 10/01/19 23 09/30/2022 COMP. METAB OLIC PANEL (14) albumin 4.3 g/dL 3.5-5. 5 Not Available [facility] ([facility]) [address] [facility] [place], [address], 10/01/2022 06:15:53 10/01/19 23 09/30/2022 COMP. METAB OLIC PANEL (14) globulin, total 3.0 g/dL 1.5-4. 5 Not Available [facility] ([facility]) [address] [facility] [place], [address], 10/01/2022 06:15:53 10/01/19 23 09/30/2022 COMP. METAB OLIC PANEL (14) A/G ratio 1.4 Not Available [facility] ([facility]) [address] [place], [address], 10/01/2022 06:15:53 10/01/19 23 09/30/2022 COMP. METAB OLIC PANEL (14) bilirubin, total 0.2 mg/dL 0.0-1. 2 Not Available [facility] ([facility]) [address] [facility] [place], [address], 10/01/2022 06:15:53 10/01/19 23 09/30/2022 COMP. METAB OLIC PANEL (14) alkaline phosphatase 63.9 IU/L 42.0-1 21.0 Not Available [facility] ([facility]) [address] [facility] [place], [address], 10/01/2022 06:15:53 10/01/19 23 09/30/2022 COMP. METAB OLIC PANEL (14) AST (SGOT) 17.6 U/L 10.0-4 2.0 Not Available [facility] ([facility]) [address] [facility] [place], [address], 10/01/2022 06:15:53 10/01/19 23 09/30/2022 COMP. METAB OLIC PANEL (14) ALT (SGPT) 27.8 U/L 10.0-6 0.0 Not Available [facility] ([facility]) [address] [facility], [place], [address], 10/01/2022 06:15:53 10/01/1909/30/2022 CBC, PLATE LET, NO DIFFE RENTI AL WBC 11.1 K/uL 3.4-10 .8 above high normal Not Available [facility] ([facility]) [address] [facility], [place], [address], 10/01/2022 06:15:54 10/01/1909/30/2022 CBC, PLATE LET, NO DIFFE RENTI AL RBC 4.8 M/uL 4.2-5. 4 Not Available [facility] ([facility]) [address] [facility], [place], [address], 10/01/2022 06:15:54 10/01/1909/30/2022 CBC, PLATE LET, NO DIFFE RENTI AL hemoglobin 13.3 g/dL 11.5-1 5.5 Not Available [facility] ([facility]) [address] [place], [address], 10/01/2022 06:15:54 10/01/1909/30/2022 CBC, PLATE LET, NO DIFFE RENTI AL hematocrit 42.5 % 36.0-4 8.0 Not Available [facility] ([facility]) [address] [place], [address], 10/01/2022 06:15:54 10/01/1909/30/2022 CBC, PLATE LET, NO DIFFE RENTI AL MCV 89 fL 80-95 Not Available [facility] ([facility]) [address] [place], [address], 10/01/2022 06:15:54 10/01/1909/30/2022 CBC, PLATE LET, NO DIFFE RENTI AL MCH 28 pg 27-32 Not Available [facility] ([facility]) [address] [place], [address], 10/01/2022 06:15:54 10/01/1909/30/2022 CBC, PLATE LET, NO DIFFE RENTI AL MCHC 31 g/dL 32-36 below low normal Not Available [facility] ([facility]) [address] [place], [address], 10/01/2022 06:15:54 10/01/1909/30/2022 CBC, PLATE LET, NO DIFFE RENTI AL RDW 13.7 % 11.5-1 4.5 Not Available [facility] ([facility]) [address] [place], [address], 10/01/2022 06:15:54 10/01/1909/30/2022 CBC, PLATE LET, NO DIFFE RENTI AL platelets 328 K/uL 155-37 9 MPV 11.5 FL 8.9-1 2.7 N Not Available [facility] ([facility]) [address] [facility], [place], [address], 10/01/2022 06:15:54 10/01/1909/30/2022 CBC, PLATE LET, NO DIFFE RENTI AL NRBC 0 % Not Available [facility] ([facility]) [address] [place], [address], 10/01/2022 06:15:54 10/01/1910/01/2022 TSH+F REE T4 TSH 2.080 uIU/m L 0.450- 4.500 Not Available [facility] ([facility]) [address] [place], [address], 10/01/2022 08:23:37 10/01/1910/01/2022 TSH+F REE T4 T4,free(dire ct) 0.92 NG/dL 0.82-1 .77 Not Available [facility] ([facility]) [address] [place], [address], 10/01/2022 08:23:37 10/01/19 23 10/01/2022 CHERYL+L IPASE amylase 123 U/L 31-110 above high normal Not Available [facility] ([facility]) [address] [facility], [place], [address], 10/01/2022 08:23:37 10/01/19 23 10/01/2022 CHERYL+L IPASE lipase 170 U/L 14-72 above high normal Not Available [facility] ([facility]) [address] [facility], [place], [address], 10/01/2022 08:23:37 10/01/19 23 10/01/2022 CARDI OVASC ULAR REPOR T interpretati on Note Suppl ement al repor t is avail able. Not Available [facility] ([facility]) [address] [facility], [place], [address], 10/01/2022 06:15:54 10/01/1910/01/2022 CARDI OVASC ULAR REPOR T pdf . Not Available [facility] ([facility]) [address] [facility], [place], [address], 10/01/2022 06:15:54 07/13/1907/14/2024 TSH+F REE T4 TSH 2.090 uIU/m L 0.450- 4.500 Not Available [facility] [address] [place], [address], 07/14/2024 09:14:16 07/13/1907/14/2024 TSH+F REE T4 T4,free(dire ct) 0.98 NG/dL 0.82-1 .77 Not Available [facility] & [facility] [address] [place], [address], 07/14/2024 09:14:16 07/13/19 25 07/14/2024 LIPID PANEL cholesterol, total 251 mg/dL 100-19 9 above high normal Not Available [address], [address], 07/14/2024 09:14:18 07/13/19 25 07/14/2024 LIPID PANEL triglyceride s 325 mg/dL 0-149 above high normal Not Available [address], [address], 07/14/2024 09:14:18 07/13/19 25 07/14/2024 LIPID PANEL HDL cholesterol 42 mg/dL >39 Not Available [address], [address], 07/14/2024 09:14:18 07/13/1907/14/2024 LIPID PANEL VLDL cholesterol sixto 60 mg/dL 5-40 above high normal Not Available [address], [address], 07/14/2024 09:14:18 07/13/19 25 07/14/2024 LIPID PANEL LDL chol calc (nih) 149 mg/dL 0-99 above high normal Not Available [address], [address], 07/14/2024 09:14:18 07/13/19 25 07/14/2024 COMP. METAB OLIC PANEL (14) glucose 94 mg/dL 70-99 Not Available [address], [address], 07/14/2024 09:14:19 07/13/19 25 07/14/2024 COMP. METAB OLIC PANEL (14) BUN 7 mg/dL 6-24 Not Available [address], [address], 07/14/2024 09:14:19 07/13/19 25 07/14/2024 COMP. METAB OLIC PANEL (14) creatinine 0.59 mg/dL 0.57-1 .00 Not Available [address], [address], 07/14/2024 09:14:19 07/13/1907/14/2024 COMP. METAB OLIC PANEL (14) eGFR 116 mL/mi n/1.7 3 >59 Not Available [address], [address], 07/14/2024 09:14:19 07/13/19 25 07/14/2024 COMP. METAB OLIC PANEL (14) BUN/creatini ne ratio 12 9-23 Not Available [address], [address], 07/14/2024 09:14:19 07/13/1907/14/2024 COMP. METAB OLIC PANEL (14) sodium 137 mmol/ L 134-14 4 Not Available [address], [address], 07/14/2024 09:14:19 07/13/1907/14/2024 COMP. METAB OLIC PANEL (14) potassium 4.4 mmol/ L 3.5-5. 2 Not Available [address], [address], 07/14/2024 09:14:19 07/13/1907/14/2024 COMP. METAB OLIC PANEL (14) chloride 102 mmol/ L 96-106 Not Available [address], [address], 07/14/2024 09:14:19 07/13/1907/14/2024 COMP. METAB OLIC PANEL (14) carbon dioxide, total 22 mmol/ L 20-29 Not Available [address], [address], 07/14/2024 09:14:19 07/13/1907/14/2024 COMP. METAB OLIC PANEL (14) calcium 9.4 mg/dL 8.7-10 .2 Not Available [address], [address], 07/14/2024 09:14:19 07/13/1907/14/2024 COMP. METAB OLIC PANEL (14) protein, total 7.3 g/dL 6.0-8. 5 Not Available [address], [address], 07/14/2024 09:14:19 07/13/1907/14/2024 COMP. METAB OLIC PANEL (14) albumin 4.3 g/dL 3.9-4. 9 Not Available [address], [address], 07/14/2024 09:14:19 07/13/1907/14/2024 COMP. METAB OLIC PANEL (14) globulin, total 3.0 g/dL 1.5-4. 5 Not Available [address], [address], 07/14/2024 09:14:19 07/13/1907/14/2024 COMP. METAB OLIC PANEL (14) bilirubin, total <0.2 mg/dL 0.0-1. 2 Not Available [address], [address], 07/14/2024 09:14:19 07/13/1907/14/2024 COMP. METAB OLIC PANEL (14) alkaline phosphatase 76 IU/L 44-121 Not Available [address], [address], 07/14/2024 09:14:19 07/13/1907/14/2024 COMP. METAB OLIC PANEL (14) AST (SGOT) 22 IU/L 0-40 Not Available [facility] & [address], [address], 07/14/2024 09:14:19 07/13/19 25 07/14/2024 COMP. METAB OLIC PANEL (14) ALT (SGPT) 34 IU/L 0-32 above high normal Not Available [address], [address], 07/14/2024 09:14:19 07/13/1907/14/2024 CARDI OVASC ULAR REPOR T interpretati on Note Suppl ement al repor t is avail able. Not Available [address], [address], 07/14/2024 09:14:20 07/13/1907/14/2024 CARDI OVASC ULAR REPOR T pdf . Not Available [address], [address], 07/14/2024 09:14:20 07/13/1907/14/2024 CBC, PLATE LET, NO DIFFE RENTI AL WBC 11.8 x10e3 /uL 3.4-10 .8 above high normal Not Available [address], [address], 07/14/2024 09:14:21 07/13/1907/14/2024 CBC, PLATE LET, NO DIFFE RENTI AL RBC 4.85 x10e6 /uL 3.77-5 .28 Not Available [address], [address], 07/14/2024 09:14:21 07/13/1907/14/2024 CBC, PLATE LET, NO DIFFE RENTI AL hemoglobin 13.6 g/dL 11.1-1 5.9 Not Available [facility] & [address], [address], 07/14/2024 09:14:21 07/13/1907/14/2024 CBC, PLATE LET, NO DIFFE RENTI AL hematocrit 42.3 % 34.0-4 6.6 Not Available [address], [address], 07/14/2024 09:14:21 07/13/1907/14/2024 CBC, PLATE LET, NO DIFFE RENTI AL MCV 87 fL 79-97 Not Available [address], [address], 07/14/2024 09:14:21 07/13/1907/14/2024 CBC, PLATE LET, NO DIFFE RENTI AL MCH 28.0 pg 26.6-3 3.0 Not Available [address], [address], 07/14/2024 09:14:21 07/13/1907/14/2024 CBC, PLATE LET, NO DIFFE RENTI AL MCHC 32.2 g/dL 31.5-3 5.7 Not Available [address], [address], 07/14/2024 09:14:21 07/13/1907/14/2024 CBC, PLATE LET, NO DIFFE RENTI AL RDW 13.8 % 11.7-1 5.4 Not Available [address], [address], 07/14/2024 09:14:21 07/13/1907/14/2024 CBC, PLATE LET, NO DIFFE RENTI AL platelets 410 x10e3 /uL 150-45 0 Not Available [address], [address], 07/14/2024 09:14:21 10/26/19 21 10/25/2020 XR, toe(s ) No observ ation record ed. [facility] (Cardiology & Emg) [address] [place] [address] [address], [place], [address], 10/25/2020 13:18:15 10/25/19 23 10/24/2022 NM, hepat obili agata scan No observ ation record ed. [facility] Gastroenterol ogy Dept [address] [facility] [address], [place], [address], 10/24/2022 14:53:32 02/05/20 23 02/04/2023 XR, ribs, bilat eral No observ ation record ed. [place] [id number] [facility] [address], [place], [address], 02/04/2023 16:22:52 04/05/20 23 04/05/2023 MAMMO , scree gloria, digit al, bilat eral No observ ation record ed. [address] , [place], [address], 04/07/2023 11:47:44 03/09/20 24 03/09/2024 XR, hand No observ ation record ed. [facility] [address], [place], [address], 03/09/2024 14:45:08 Result Notes None recorded. Problems Name Problem SNOMED Code Status Onset Date Resolution Date Notes Provider Name and Address Organization Details Recorded Time Triggering of digit 472958280 Active 2016 KERRY [place], [place] - [facility] 8 10:11:56 Acute pelvic inflammatory disease 356202316 Active Isaias Barragan PA-C Attn: Kina g,[address] [facility], [place], [address], [place] [facility] 0 10:59:28 Bacterial vaginosis 326620840 Active Isaias Barragan PA-C Attn: Accountin g,[address] [facility], [place], [place], [address] [place] [address] 2, [place] [facility] 0 10:59:27 Right upper quadrant pain 776763359 Active Isaias Barragan PA-C Attn: Accountin g,[address] [facility], [place], [place], [address] [place] [address] 2, [place] [facility] 0 10:59:28 Cyst of ovary 99934242 Active Isaias Barragan PA-C Attn: Accountin g,[address] [facility], [place], [place], [address] [place] [address] 2, [place] [facility] 0 10:59:27 Cramping pain 617534847 Active Isaias Barragan PA-C Attn: Accountin g,[address] [place], [place], [address] [place] [address] 2, [place] [facility] 0 10:59:28 Right lower quadrant pain 640606691 Active Isaias Barragan PA-C Attn: Accountin g,[address] [facility], [place], [place], [address] [place] [address] 2, [place] [facility] 0 10:59:28 Disorders of lymph node and lymphatics 246078681 Active Isaias Barragan PA-C Attn: Accountin g,[address] [place], [place], [address] [place] [address] 2, [place] [facility] 0 10:59:27 On examination - vaginal discharge Active Isaias Barragan PA-C Attn: Accountin g,[address] [facility], [place], [place], [address] [place] [address] 2, [place] [facility] 0 10:59:28 Pain in pelvis 36921549 Active Isaias Barragan PA-C Attn: Accountin g,[address] [place], [place], [address] [place] [address] 2, [place] [facility] 0 10:59:28 Candidiasis of vagina 27032259 Active Isaias Barragan PA-C Attn: Accountin g,[address] [place], [place], [address] [place] [address] 2, [place] [facility] 0 10:59:28 Nausea 773813301 Active Isaias Barragan PA-C Attn: Accountkb jimenez,[address] [facility], [place], [place], [address] [place] [address] 2, [place] [facility] 0 10:59:28 Pain 25774448 Active Isaias Barragan PA-C Attn: Accountkb g,[address] [facility], [place], [place], [address] [place] [address] 2, [place] [facility] 0 10:59:27 Vaginal discharge 865368816 Active Isaias Barragan PA-C Attn: Accountkb g,[address] [place], [place], [address] [place] [address] 2, [facility] - [facility] 0 10:59:28 Dysuria 36977374 Active Isaias Barragan PA-C Attn: Accountkb g,[address] [place], [place], [address] [place] [address] 2, [facility] - [facility] 0 10:59:27 Carpal tunnel syndrome 99653849 Active Isaias Barragan PA-C Attn: Accountkb g,[address] [place], [place], [address] [place] [address] 2, [place] [facility] 0 10:59:27 Chronic anxiety 294761213 Active 2016 Isaias Barragan PA-C Attn: Accountkb g,[address] [place], [place], [address] [place] [address] 2, [place] [facility] 0 10:59:28 Problem Notes None recorded. Procedures Surgical History Date Name Laterality Status Provider Name and Address Organization Details Recorded Time 3 Date of Last Mammogram completed Diana Calhoun [place] [facility] 07/13/2024 14:48:52 7 Carpal tunnel surgery completed Nicki Henriquez [place] [facility] 06/05/2018 10:07:39 6 LAPAROSCOPY, DIAGNOSTIC (SURG) completed Palak Cortez MD Attn: Accounting,[address] [place], [address], [facility] 12/24/2015 11:03:09 6 Date of Last Pap Smear completed Melinda Gottlieb RN [facility] 11/01/2015 16:26:25 4 Endometrial Ablation completed Kristie Banks MA [facility] 03/24/2019 11:57:40 4 Dilation and Curettage completed [facility] 08/23/2014 11:16:11 1 Tubal Ligation completed [facility] 08/23/2014 11:16:11 Imaging Results Imaging Date Name Status LastModified by Organization Details LastModified Time 10/25/2020 XR, toe(s) completed [facility] (Cardiology & Emg) [address] [place] [address], [address], 10/25/2020 13:18:15 10/24/2022 NM, hepatobiliary scan completed [facility] Gastroenterology Dept [address] [place] [address] Dr [address]iano, [place], [address], 10/24/2022 14:53:32 02/04/2023 XR, ribs, bilateral completed [address], [address], 02/04/2023 16:22:52 04/05/2023 MAMMO, screening, digital, bilateral completed [address] , [place], [address], 04/07/2023 11:47:44 03/09/2024 XR, hand completed [facility] [address] [place], [address], 03/09/2024 14:45:08 Procedure Notes None recorded. Medical Equipment None Reported. Allergies Allergen ID Allergen Name Allergen Category Reaction Reaction Severity Criticality Documentation Date Start Date Code Code System Note Provider Name and Address Organization Details Recorded Time 428218 honey bee venom environme nt Not available Not available Not available 06/05/2018 52834 7 RxNorm Not Available Not Available Not Available 24953 Depo-Prov era medicatio n Not available Not available Not available 08/23/2014 6 RxNorm Not Available Not Available Not Available Medications Name Sig Start Date Stop Date Status Note LastModified by Organization Details LastModified Time Prescript ion - Prior Authoriza tion Request TAKETAKE 1 TABLET BY MOUTH EVERY DAY DIRECTED 05/24 completed Not Available Not Available Not Available cyclobenz aprine 10 mg tablet TAKE 1 TABLET BY MOUTH THREE TIMES DAILY NEEDED FOR MUSCLE SPASM 07/13 completed Not Available Not Available Not Available amoxicill in 500 mg capsule 07/13 completed Not Available Not Available Not Available buspirone 5 mg tablet Take 1 tablet twice a day by oral route for 30 days. 09/14 completed Not Available Not Available Not Available atorvasta tin 20 mg tablet Take 1 tablet every day by oral route for 90 days. 2024 active Not Available Not Available Not Avai lable Depo-Medr ol 40 mg/mL suspensio n for injection Take 2 mL by injectio n route. 05/18 completed Not Available Not Available Not Available azithromy joycelyn 250 mg tablet 05/11 completed Not Available Not Available Not Available ibuprofen 800 mg tablet 09/30 completed Not Available Not Available Not Available clarithro mycin 500 mg tablet 07/13 completed Not Available Not Available Not Available hydrocodo ne 5 mg-acetam inophen 325 mg tablet TAKE 1 TABLET BY MOUTH EVERY 6 HOURS FOR UP TO 6 DOSES NEEDED FOR PAIN 09/30 completed Not Available Not Available Not Available ondansetr on HCl 8 mg tablet Take 1 tablet twice a day by oral route as needed for 30 days. 02/06 completed Not Available Not Available Not Available meloxicam 15 mg tablet TAKE 1 TABLET BY MOUTH DAILY FOR 5 DAYS 09/30 completed Not Available Not Available Not Available ondansetr on HCl 4 mg tablet Take 1 tablet every 8 hours by oral route. 07/13 completed Not Available Not Available Not Available prednison e 20 mg tablet 05/11 completed Not Available Not Available Not Available ceftriaxo ne 250 mg solution for injection 2014 active Not Available Not Available Not Avai lable Diflucan 150 mg tablet Take 1 tablet by oral route as directed for 1 day. 2015 active Not Available Not Available Not Avai lable diphenoxy late-atro pine 2.5 mg-0.025 mg tablet Take 2 tablets 4 times a day by oral route as needed for 5 days. 05/18 completed Not Available Not Available Not Available acetamino phen 300 mg-codein e 30 mg tablet Take 1 tablet every 6 hours by oral route. 02/06 completed Not Available Not Available Not Available Aygestin 5 mg tablet TAKE 1 TABLET BY MOUTH EVERY DAY DIRECTED 04/08 completed Not Available Not Available Not Available sulfameth oxazole 800 mg-trimet hoprim 160 mg tablet TAKE 1 TABLET BY MOUTH TWICE DAILY FOR 10 DAYS 09/30 completed Not Available Not Available Not Available hydrocodo ne 10 mg-acetam inophen 325 mg tablet Take 1 tablet every 4-6 hours by oral route as needed. 05/24 completed Not Available Not Available Not Available doxycycli ne monohydra te 100 mg tablet Take 1 tablet twice a day by oral route for 14 days. 2014 active Not Available Not Available Not Avai lable tramadol 50 mg tablet TAKE 1 TO 2 TABLETS BY MOUTH EVERY 6 HOURS NEEDED FOR MODERATE TO SEVERE PAIN 07/31 completed Not Available Not Available Not Available Depo-Medr ol 80 mg/mL suspensio n for injection Take 1 mL by injectio n route. 05/11 completed Not Available Not Available Not Available aspirin 325 mg tablet,de layed release 09/14 completed Not Available Not Available Not Available ciproflox acin 0.3 % eye drops INSTILL 2 DROPS INTO THE RIGHT EYE EVERY 4 HOURS FOR ABRASION FOR 5 DAYS 09/30 completed Not Available Not Available Not Available Flagyl 500 mg tablet Take 1 tablet twice a day by oral route for 7 days. 2015 active Not Available Not Available Not Avai lable phenazopy ridine 100 mg tablet 09/14 completed Not Available Not Available Not Available cephalexi n 500 mg capsule TAKE 1 CAPSULE BY MOUTH TWICE DAILY FOR 10 DAYS 09/30 completed Not Available Not Available Not Available pantopraz ole 40 mg tablet,de layed release TAKE 1 TABLET BY MOUTH TWICE DAILY FOR 14 DAYS PART OF HOURS-PY FLORA REGIMEN 07/13 completed Not Available Not Available Not Available buspirone 10 mg tablet Take 1 tablet twice a day by oral route for 30 days. 2024 active Not Available Not Available Not Avai lable ascorbic acid (vitamin C) 500 mg chewable tablet 05/18 completed Not Available Not Available Not Available gabapenti n 300 mg capsule Take 1 capsule 3 times a day by oral route for 30 days. 09/30 completed Not Available Not Available Not Available Tylenol 325 mg tablet Take 325 mg by oral route. 05/18 completed Not Available Not Available Not Available diclofena c sodium 75 mg tablet,de layed release Take 1 tablet twice a day by oral route for 30 days. 05/18 completed Not Available Not Available Not Available ibuprofen 600 mg tablet Take 1 tablet every 6 hours by oral route. 2015 active Not Available Not Available Not Avai lable polyethyl kathryn glycol 3350 17 gram/dose oral powder DISSOLVE 1 CAPFUL IN LIQUID AND TAKE BY MOUTH UP TO THREE TIMES DAILY NEEDED FOR CONSTIPA TION 09/30 completed Not Available Not Available Not Available Ativan 0.5 mg tablet Take 1 tablet every day by oral route. active Not Available Not Available No t Available methylpre dnisolone 4 mg tablets in a dose pack FOLLOW PACKAGE DIRECTIO NS 07/13 completed Not Available Not Available Not Available ketorolac 60 mg/2 mL intramusc ular solution Inject 2 mL by intramus cular route. 02/06 completed Not Available Not Available Not Available Diflucan 200 mg tablet Take 1 tablet every 72 hours by oral route. 07/13 completed Not Available Not Available Not Available naproxen 500 mg tablet Take 1 tablet twice a day by oral route for 30 days. 05/11 completed Not Available Not Available Not Available diazepam 5 mg tablet 1 bid tid 09/14 completed Not Available Not Available Not Available amoxicill in 875 mg-potass ium clavulana te 125 mg tablet TAKE 1 TABLET BY MOUTH EVERY 12 HOURS FOR 7 DAYS 07/13 completed Not Available Not Available Not Available azithromy joycelyn 500 mg tablet Take 1 tablet every day by oral route for 3 days. 05/18 completed Not Available Not Available Not Available Sprintec (28) 0.25 mg-35 mcg tablet Take 1 tablet every day by oral route. 05/24 completed Not Available Not Available Not Available Lupron Depot 11.25 mg (3 month) intramusc ular syringe kit Inject 11.25 mg by intramus cular route as directed . 2015 active Not Available Not Available Not Avai lable nitrofura ntoin monohydra te/macroc rystals 100 mg capsule 09/14 completed Not Available Not Available Not Available Vicodin 5 mg-300 mg tablet Take 1 tablet every 6-8 hours by oral route. 05/24 completed pharmacy called and vicodin not cover under insuranc e rx change to norco Not Available Not Available Not Available Junel Fe 24 1 mg-20 mcg (24)/75 mg (4) tablet Take 1 tablet every day by oral route. 09/14 completed Not Available Not Available Not Available Blisovi Fe 06/28 (28) 1 mg-20 mcg (21)/75 mg (7) tablet Take 1 tablet every day by oral route for 28 days. 09/14 completed Not Available Not Available Not Available G Tussin AC 10 mg-100 mg/5 mL oral liquid 05/11 completed Not Available Not Available Not Available Wegovy 0.5 mg/0.5 mL subcutane ous pen injector Inject 0.5 mg every week by subcutan eous route. 07/13 completed Not Available Not Available Not Available Vitals Date Recorded Body height Body temperature Oxygen saturation Oxygen saturation in Arterial blood by Pulse oximetry Heart rate Systolic blood pressure Diastolic blood pressure Provider Name and Address Organization Details Last Updated DateTime 1 167.64 cm 98.1 [degF] 97 % 97 % 92 /min 140 mm[Hg] 100 mm[Hg] Diana Calhoun MA [place] - [facility] 1 17:03:28 Date Recorded Body height Body mass index (BMI) Body weight Oxygen saturation Oxygen saturation in Arterial blood by Pulse oximetry Heart rate Body temperature Systolic blood pressure Diastolic blood pressure Provider Name and Address Organization Details Last Updated DateTime 3 167.64 cm 35.3 kg/m2 10495.7 3 g 99 % 99 % 88 /min 98.2 [degF] 139 mm[Hg] 84 mm[Hg] Felicia buckley MA [facility] 3 10:21:31 Date Recorded Body height Body mass index (BMI) Body weight Oxygen saturation Oxygen saturation in Arterial blood by Pulse oximetry Heart rate Body temperature Systolic blood pressure Diastolic blood pressure Provider Name and Address Organization Details Last Updated DateTime 3 167.64 cm 34.7 kg/m2 68381.3 6 g 99 % 99 % 103 /min 98.2 [degF] 125 mm[Hg] 91 mm[Hg] Felicia buckley MA [facility] 3 17:23:08 Date Recorded Body height Body mass index (BMI) Body weight Body temperature Oxygen saturation Oxygen saturation in Arterial blood by Pulse oximetry Heart rate Systolic blood pressure Diastolic blood pressure Provider Name and Address Organization Details Last Updated DateTime 3 167.64 cm 35 kg/m2 86020.8 3 g 98.2 [degF] 98 % 98 % 95 /min 114 mm[Hg] 76 mm[Hg] Felicia buckley MA [facility] 3 15:49:14 Date Recorded Body height Body mass index (BMI) Body weight Oxygen saturation Oxygen saturation in Arterial blood by Pulse oximetry Heart rate Systolic blood pressure Diastolic blood pressure Provider Name and Address Organization Details Last Updated DateTime 5 167.64 cm 37.3 kg/m2 027379. 84 g 98 % 98 % 85 /min 120 mm[Hg] 88 mm[Hg] Diana Calhoun MA [facility] 5 14:52:41 Social History Question Answer Notes LastModified by Organizat ion Details LastModified Time Tobacco Smoking Status Current Every Day Smoker Felicia Dawson MA null, [facility] 09/30/2022 10:22:31 What Is Your Level Of Alcohol Consumption? Occasional Information not available 08/23/2014 Are You Blind Or Do You Have Difficulty Seeing? No Information not available 09/30/2022 Is Blood Transfusion Acceptable In An Emergency? Yes [email or web address] Information not available 08/01/2015 What Is Your Level Of Caffeine Consumption? Moderate Information not available 10/27/2020 In The 14 Days Before Symptom Onset, Have You Had Close Contact With A Laboratory-confir med COVID-19 While That Case Was Ill? No Information not available 09/15/2019 If Patient Spent Time In [facility] - Does The Patient Live In [facility]? No Information not available 09/15/2019 In The 14 Days Before Symptom Onset, Have You Had Close Contact With A Person Who Is Under Investigation For COVID-19 While That Person Was Ill? No Information not available 09/15/2019 In The 14 Days Before Symptom Onset, Did The Patient Spend Time In [facility]? No Information not available 09/15/2019 Have You Been To An Area Known To Be High Risk For COVID-19? No Information not available 09/15/2019 Are You Currently Employed? No Information not available 07/13/2024 Are You Deaf Or Do You Have Serious Difficulty Hearing? No Information not available 09/30/2022 What Type Of Diet Are You Following? REGULAR Information not available 10/27/2020 Do You Or Have You Ever Used E-cigarettes Or Vape? Never Used Electronic Cigarettes Information not available 02/07/2020 What Was The Date Of Your Most Recent Tobacco Screening? 07/13/2024 Information not available 07/13/2024 How Many Children Do You Have? 2 Information not available 08/23/2014 Performs Monthly Self-breast Exam? No [email or web address] Information no t available 08/01/2015 Do You Use Protection During Sex? Usually [email or web address] Information not available 08/01/2015 What Is Your Relationship Status? Single Information not available 10/27/2020 Do You Use Your Seat Belt Or Car Seat Routinely? Yes Information not available 10/27/2020 Are You Sexually Active? Yes [email or web address] Information not available 08/01/2015 Do You Have Smoke And Carbon Monoxide Detectors In Your Home? Yes Information not available 10/27/2020 Are You Passively Exposed To Smoke? Yes Information no t available 10/27/2020 Do You Or Have You Ever Used Smokeless Tobacco? Never Used Smokeless Tobacco Information not available 02/07/2020 How Much Tobacco Do You Smoke? 0.25 PPD 4 Cigs Per Day Information not available 09/30/2022 Do You Feel Stressed (tense, Restless, Nervous, Or Anxious, Or Unable To Sleep At Night)? [id number] Information not available 09/30/2022 Do You Use Any Illicit Or Recreational Drugs? No Information not available 10/27/2020 Has Tobacco Cessation Counseling Been Provided? Yes [email or web address] Information not available 10/07/2018 On What Date Was Tobacco Cessation Counseling Provided? 07/13/2024 Information not available 07/13/2024 How Many Years Have You Smoked Tobacco? 20 [email or web address] Information not available 06/05/2018 Do You Or Have You Ever Used Any Other Forms Of Tobacco Or Nicotine? No Information not available 10/27/2020 Sex: Female Functional Status Question Answer Note LastModified by Organizat ion Details LastModified Time Are you able to care for yourself? Yes Information not available 09/30/2022 What is your exercise level? Occasional Information not available 09/30/2022 Mental Status None recorded. Family History Relationship Description Onset Age of this Age Resolved Age Notes LastModified by Organization Details LastModified Time Father Heart disease [email or web address] Not available 2015 18:45:05 Father Hypertensive disorder [email or web address] Not available 2015 18:45:05 Father Diabetes mellitus [email or web address] Not available 2015 18:45:05 Father Hyperlipidem ia [place] Not available 2015 18:45:05 Mother Hypertensive disorder [email or web address] Not available 2015 18:45:05 Mother Hyperlipidem ia [place] Not available 2015 18:45:06 Maternal Grandfather Acute myocardial infarction 42 [email or web address] Not available 07/08 17:08:54 Notes:Paternal Parents--[hea rt disease--htn--hyperlipidemia] Medical History Condition Response Coronary Artery Disease N Blood Diseases N Kidney Cyst N Hyperthyroidism N Blood disorders N MRSA N Blood Transfusion N Emphysema N Depression N COPD N Blood Clots N Pneumonia N Peripheral Arterial Disease N Premature N Edema N TIA N Headaches/Migraines N Anxiety Disorder N Obesity N Polyps N Infertility N Acid Reflux (GERD) N Hematuria N Stroke N Neck Injury N Polio N Hospital Admission other than N Neurologic Disorder N Other Sleep Disorders N Rheumatoid Arthritis N Fibromyalgia N Abdominal Aortic Aneurysm Repair N Kidney Disease N Heart Conditions N Heart Disease/Heart Problems N Hospitalizations N Brain Tumors N Acne N Skin Problems N Eating Disorder N Meningitis N Constipation N Tuberculosis N Cerebral Palsy N Myocardial Infarction N Asthma N Substance Abuse N Peripheral Vascular Disease N Vertigo N Sleep Disorder N Cirrhosis N Pulmonary Embolism N Chicken Pox N Hematologic Disease N Flomax Use Past or Present N Anxiety/Depression N Thyroid Disease N Colon Cancer N Lung Disease N Glaucoma N Developmental or Behavioral Disorders N Bipolar N Pacemaker N Diverticulitis/Diverticulosis N Orthopedic Problems N Anesthesia Complications N Orthotics N Head Injury/Concussion N Congenital Anomalies N Mcbride Bite N Chronic Kidney Disease N Endometriosis N Liver Disease N Schizophrenia N Dialysis N Speech Delay N Chronic Obstructive Pulmonary Disease N Parkinson's Disease N Thyroid Problems N GI Problems N Developmental Delay N Anemia N Multiple Sclerosis N Immune System Disorder N Colon Polyps N Heart Attack ([place]) N Diabetes N Cardiomyopathy N Blood Transfusions N Heart Problems/Murmur N Eye Trauma N Congestive Heart Failure (CHF) N Valvular Heart Disease N Hyperlipidemia N Double Vision N Abuse/Domestic Violence N Hepatitis B N Lupus N Epilepsy/Seizures N Reflux/GERD N Aneurysm N Heart Disease N Bronchitis N Pre-Eclampsia N Hypertension N Heart Failure N Other N Gout N High Blood Pressure N Atrial Fibrillation N Kidney Stones N Head Trauma/Injury N Congenital Heart Disease N Spine Problems N Gastrointestinal Disease N Lung Mass N Sinusitis N Obstructive Sleep Apnea N Muscle, Joint, or Bone Problems N Autoimmune disease N Vision or Eye Problems N Arthritis N Blood Clot N Cancer N Seasonal allergies N Leg or Foot Ulcers N Raynaud's Disease N Aortic Aneurysm N Arrhythmia N Headaches N Heart Problems N Ambloypia N Ear or Hearing Problems N Hyperparathyroidism N Migraines N Artificial Joints N Kidney or Bladder Problems N NSAID Use N Encephalitis N PTSD N Ulcers N Prostate Hypertrophy N Bleeding Disorder N AIDS/HIV N Urinary Tract Infection N Back Problems N Allergies N Atrial Flutter N GERD/Reflux N Hepatitis N Autism Spectrum Disorder (ASD) N Breast Cancer N Hernia N Hypothyroidism N Breast Problem N Genitourinary Disease N Deep Vein Thrombosis N Varicose Veins N Cystic Fibrosis N Hearing Loss N Developmental Problems N Carotid Disease N Vitamin D Deficiency N ADHD N Bladder or Kidney Problems N High Cholesterol N [place] N Valvular Abnormalities N Psychiatric/Mental Health Condition N Organ Transplant N Foot Deformity N Allergies/Hayfever N Dyslipidemia N Hyponatremia N Diabetic Eye Disease N Osteoporosis/Osteopenia N Back Pain N Proteinuria N Mental Illness N Neurological Problems N Ovarian Cancer N Bedwetting N Seizures/Epilepsy N Kidney Failure N Ocular trauma N Diverticulitis N Dementia N Sleep Apnea N Mental Problems N Warfarin Management N Osteoporosis N Gynecological History Statement/Question Response Abnormal Pap N Date of Last Mammogram 04/05/2023 Date of LMP STIs/STDs N Date of Last Pap Smear 10/16/2015 Age at Menarche 13 Current Control Method Tubal Ligat ion Age at First Child 20 LMP Unknown Obstetrics History GPAL:G 3 P 2 0 1 2 Type Value Multiple Births 0 Full Term 2 Induced 1 Spontaneous 0 Premature 0 Living 2 Ectopics 0 Total 3 Immunizations Vaccine Type Date Status Note Provider Nam e and Address Organization Details Recorded Time Tdap 09/15/2019 completed Diana Calhoun MA [facility], [place] - [facility] 09/15/2019 11:33:46 Past Encounters Encounter ID Performer Location Encounter Start Date Encounter Closed Date Diagnosis/Indication Diagnosis SNOMED-CT Code Diagnosis ICD10 Code Diagnosis Note [id number] Abhishek Valdez [facility] ([facility] 122) 2 [facility] [address] [place] [address] 06/06/2015 11:46:44 06/08/2015 09:18:13 Acute pelvic inflammatory disease 942026137 N73.9 Patient advised to call tomorrow for update on symptoms [id number] KIARRA Gallardo [facility] [address] [place] [address] 07/12/2015 17:08:34 07/12/2015 17:56:06 Right upper quadrant pain 410517249 R10.11 [id number] KIARRA Gallardo [facility] [address] [place] [address] 07/17/2015 10:44:10 07/17/2015 11:25:01 Acute pelvic inflammatory disease 392736888 N73.9 [id number] Abhishek Michele Simmons ([facility] 122) [address] [facility] [place] [address] 08/01/2015 09:33:16 08/04/2015 10:45:49 Cyst of ovary 42755835 N83.20 Cramping pain 326290707 R52 Patient may be having post ablation cramping. Suggest managing with pain medicine over the next 2-3 months while patient stops smoking. Then start control pills to regulate pain symptoms. She notes recently starting spotting as well. Advised to use narcotic sparingly as no refills will be given. Patient given motrin as primary pain reliever. Zofran useful for nausea which patient notes with pain medicine as well. She declines other pain medicines stating they are not helpful. [id number] KIARRA Gallardo [facility] [address] [place] [address] 08/16/2015 09:45:32 08/16/2015 10:43:08 Acute pelvic inflammatory disease 751507990 N73.9 [id number] KIARRA Gallardo [address] [place] [address] 08/22/2015 10:10:25 08/22/2015 10:52:00 Right lower quadrant pain 851982253 R10.31 [id number] RUPINDER Ramos [facility] [address] [place] [address] 10/11/2015 14:59:50 10/11/2015 16:01:46 Gynecologic examination 84380823 Z01.419 Disorders of lymph node and lymphatics 819057577 I89.9 Cyst of ovary 88404274 N 83.20 [id number] RUPINDER Ramos [facility] [address] [place] [address] 11/01/2015 15:43:19 11/01/2015 16:39:51 Cramping pain 702853551 R52 [id number] MD Casandra Soto ([facility] 122) [address] [facility] [place] [address] 11/08/2015 11:00:09 11/08/2015 19:08:05 On examination - vaginal discharge 211934191 N89.8 [id number] MD Casandra Soto ([place] [address]) [address] [facility] [place] [address] 11/17/2015 09:42:49 11/19/2015 18:33:47 Pain in pelvis 98486933 R10.2 [id number] MD Casandra Soto ([place] [address]) [address] [facility] [place] [address] 12/15/2015 15:11:37 12/18/2015 17:00:08 Pain in pelvis 96890396 R10.2 [id number] MD Casandra Soto ([place] [address]) [address] [facility] [place] [address] 12/28/2015 11:23:04 12/30/2015 20:10:16 Pain 72139324 R52 Pain in pelvis 22982941 R10.2 [id number] MD Casandra Soto ([place] [address]) [address] [facility] [place] [address] 01/16/2016 14:48:18 01/16/2016 18:41:42 Vaginal discharge 566147164 N89.8 Dysuria 89765948 R30.0 Pain in pelvis 03142804 R10.2 [id number] MD Casandra Soto ([place] [address]) [address] [facility] [place] [address] 02/05/2016 13:57:09 02/05/2016 22:53:58 Pain in pelvis 98932562 R10.2 [id number] Isaias Barragan PA-C [facility] [address] [place] [address] 03/05/2016 10:50:07 03/05/2016 13:37:25 Acute pelvic inflammatory disease 530154849 N73.9 Carpal palomo jimena syndrome 26692701 G56.02 [id number] MD Casandra Soto ([place] [address]) [address] [facility] [place] [address] 03/07/2016 10:30:09 03/07/2016 18:49:55 Pain in pelvis 55839494 R10.2 [id number] Isaias Barragan PA-C [facility] [address] [place] [address] 03/28/2016 13:44:21 03/28/2016 15:28:55 Endometriosis of uterus 19858167 N80.0 [id number] Annia Mejia MA [facility] [address] [place] [address] 05/24/2016 14:01:24 05/24/2016 16:24:43 New daily persistent headache 5871360064 09198 G44.52 Endometrio sis of uterus 27066513 N80.0 Nausea and vomiting 1693 1999 R11.2 [id number] Isaias Barragan PA-C [facility] [address] [place] [address] 07/03/2016 17:03:40 07/08/2016 09:48:38 Carpal tunnel syndrome 73794425 G56.02 [id number] Isaias Barragan PA-C [facility] [address] [place] [address] 11/01/2016 09:56:01 11/01/2016 12:58:38 Anxiety 60904342 F41.1 Endometrio sis of uterus 97723776 N80.0 Carpal palomo jimena syndrome 53453431 G56.02 [id number] Isaias Barragan PA-C [facility] [address] [place] [address] 02/04/2017 14:16:48 02/04/2017 16:51:37 Cervical radiculopathy 67250801 M54.12 Obesity 093710992 E66.9 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 3916731 M65.331 Chronic anxiety 15559519 9 F41.9 [id number] Isaias Barragan PA-C [facility] [address] [place] [address] 04/08/2017 11:35:31 04/08/2017 12:56:37 Endometriosis of uterus 94885228 N80.0 Long-term drug therapy 716475196 Z79.899 Endometrio sis (clinical) 831850951 N80.9 External hordeolum 78602 08 H00.014 Acute bact erial bronchitis 569055516 J20.9 [id number] KIARRA Gallardo [facility] [address] [place] [address] 06/16/2017 14:48:43 06/16/2017 15:49:27 Dysuria 48570650 R30.0 Cervical radiculopathy 37439795 M54.12 Endometrio sis of uterus 58961650 N80.0 [id number] [facility] [address] [place] [address] 07/16/2017 19:22:16 07/17/2017 14:48:45 Cervical radiculopathy 69306779 M54.12 [id number] Isaias Barragan PA-C [facility] [address] [place] [address] 11/11/2017 16:33:39 11/11/2017 17:43:00 Strain of right trapezius muscle 7591715918 9237161 S29.012A [id number] Isaias Barragan PA-C [facility] [address] [place] [address] 12/15/2017 11:03:50 12/15/2017 12:04:33 Cellulitis of lower limb 322198749 L03.051 [id number] Isaias Barragan PA-C [facility] [address] [place] [address] 05/11/2018 16:40:19 05/11/2018 17:47:08 Cervical radiculopathy 03309525 M54.12 [id number] KIARRA Gallardo [facility] [address] [place] [address] 06/05/2018 09:59:50 06/05/2018 11:53:48 Cervical radiculopathy 58729134 M54.12 Viral gastroenteritis 11 2456252 A08.0 [id number] [facility] [address] [place] [address] 08/24/2018 15:48:03 08/24/2018 17:02:01 Strain of right trapezius muscle 7292452916 6983415 S29.012A [id number] KIARRA Gallardo [facility] [address] [place] [address] 09/16/2018 15:34:00 09/16/2018 16:53:07 Right upper quadrant pain 169157782 R10.11 Abdominal pain 04025238 R10.9 [id number] Isaias Barragan PA-C [facility] [address] [place] [address] 10/07/2018 11:27:22 10/07/2018 14:03:12 Chronic anxiety 202002869 F41.1 Right uppe r quadrant pain 485963753 R10.11 [id number] Shayy Stroud [facility] [place] [address] OB [address] [facility] [address] [place] [address] 03/15/2019 09:05:30 03/16/2019 11:47:05 Gynecologic examination 13623377 Z01.419 1. Counseled regarding prevention of STD's , condom use and prevention . 2. Counseled regarding contracept marlo options, risk factors and side effects. 3. Advised avoidance of tobacco, alcohol, and drugs . 4. Counseled regarding folic acid supplement ation, calcium needs and prevention of osteoporos is . 5. BSE reviewed and recommende d. 6. Follow up in one year or sooner if needed. Dysmenorrhea 386982678 N 94.6 pt is interested in having ablation redone . pt will schedule with for consults. [id number] Malik Calhoun MD [place] [address] [facility] [place] [address] 03/24/2019 11:39:23 03/24/2019 14:58:17 Chronic pelvic pain of female [id number] R10.2 Contracept ion care management [id number] Z30.9 [id number] Isaias Barragan PA-C [facility] [address] [place] [address] 05/19/2019 16:21:28 05/20/2019 16:13:39 Acute maxillary sinusitis [id number] J01.01 [id number] KIARRA Gallardo [address] [place] [address] 07/08/2019 16:22:32 07/09/2019 11:11:30 Dyspnea on exertion 35291577 R06.09 [id number] Isaias Barragan PA-C [facility] [address] [place] [address] 09/15/2019 10:53:36 09/15/2019 11:39:46 Puncture wound of sole of foot 108630984 S91.331A Acute pelv ic inflammatory disease 606164564 N73.9 Viral gastroenteritis 11 8883846 A08.0 [id number] Isaias Barragan PA-C [facility] [address] [place] [address] 02/07/2020 09:39:36 02/07/2020 11:52:19 Suspected COVID-19 [id number] Z03.818 Nausea and vomiting 1693 2000 R11.2 Viral gastroenteritis 11 9939095 A08.39 [id number] KITTY Katz [address] [place] [address] 02/07/2020 11:24:44 02/08/2020 08:47:02 Suspected COVID-19 [id number] Z03.818 D/w pt the current pandemic of COVID-19 and call for social isolation in order to blunt the curve and minimize risk and spread. Encouraged patient and family to take restrictio ns seriously. They have verbalized understand ing of such. Viral syndrome [id number] B34.9 [id number] Isaias Barragan PA-C [facility] [address] [place] [address] 02/15/2020 10:32:44 02/15/2020 17:04:22 Recurrent acute tonsillitis 706109434 J03.81 [id number] Isaias Barragan PA-C [facility] [address] [place] [address] 10/27/2020 16:55:53 10/30/2020 10:19:28 Fracture of great toe 310568368 S92.404A [id number] Isaias Barragan PA-C [facility] [address] [place] [address] 09/30/2022 10:16:34 10/03/2022 15:02:47 Unintentional weight gain [id number] 39208 R63.5 Abdominal pain 42387048 R10.816 Overweight 656089909 E66 .3 [id number] Isaias Barragan PA-C [facility] [address] [place] [address] 10/09/2022 17:01:03 10/10/2022 15:59:04 History of gastric ulcer 237906785 Z87.11 Helicobact er pylori gastrointestinal tract infection 512346349 A04.8 Overweight 861525478 E66 .3 [id number] Isaias Barragan PA-C [facility] [address] [place] [address] 10/17/2022 15:44:22 10/21/2022 14:12:18 Helicobacter pylori gastrointestinal tract infection 249246937 A04.8 Candidiasis of mouth 797 28470 B37.0 Obesity 943186185 E66.01 [id number] Isaias Barragan PA-C [facility] [address] [place] [address] 07/13/2024 14:38:17 07/16/2024 10:14:46 Multiple skin tags 277661849 L91.8 Morbid obesity 453243980 E66.01 Unintentio nal weight gain 4320045071 70759 R63.5 Irritable bowel syndrome with diarrhea 197294577 K58.0 Anxiety 54545666 F41.1 Health Concerns Section Related Observation LastModified by Organization Detai ls LastModified Time None Recorded Concern Status LastModified by Organization Details LastModified Time None Recorded Advance Directives Directive None Recorded Payers Encounter Date Sequence Insurance Name Policy Number Policy Daniel Covered Member ID Daniel Member ID Guarantor Name 10/27/2020 1 [facility] PRIOR TO 12/07/2020 (MEDICAID REPLACEMENT - HMO) Jazmine Burrows [id number] Jazmine Burrows 09/30/2022 1 [facility] ON OR AFTER 12/07/20 (MEDICAID REPLACEMENT - HMO) Jazmine Burrows [id number] Jazmine Burrows 10/09/2022 1 [facility] ON OR AFTER 12/07/20 (MEDICAID REPLACEMENT - HMO) Jazmine Burrows [id number] Jazmine Burrows 10/17/2022 1 [facility] ON OR AFTER 12/07/20 (MEDICAID REPLACEMENT - HMO) Jazmine Burrows [id number] Jazmine Burrows 07/13/2024 1 [facility] [place] Jazmine Burrows [id number] Jazmine Stormy Notes Date Note Type Note Provider Name and Address Organization Details Recorded Time 10/27/2020 text/html rt great toe fracture...wearin g a shoe...non displaced fracture Isaias Barragan PA-C Attn: [address] [place], [address], [facility] 10/27/2020 17:32:03 09/30/2022 text/html gaining weight n o known reason...abdomina l distension...eati ng disorder where she eats then has vomiting and diarrhea...says she is working out alot and her eating is good...also her nerves are shot Isaias Barragan PA-C Attn: [address] [place], [address], [facility] 09/30/2022 10:40:52 10/09/2022 text/html says she is having ulcer problems and supposedly has h pylori...was not treated Isaias Barragan PA-C Attn: [address] [place], [address], [facility] 10/09/2022 17:51:06 10/17/2022 text/html h pylori ulcer...current meds are causing ctton mouth...gaining weight still by perception Isaias Barragan PA-C Attn: [address] [place], [address], [facility] 10/17/2022 16:17:50 07/13/2024 text/html skin tags..also morbid obesity wants to try weight loss..reports ibs...and gastric ulcer Isaias Barragan PA-C Attn: [address] [place], [address], [facility] 07/13/2024 15:12:19 OBGyn Episode No OBEpisode recorded.
--- OUTSIDE RECORDS SUMMARY | 2024-07-20 10:17 | XMS_ITS | Clinical Summary ---
Author Organization [facility] Address [address] [place] [address] Phone Care Team Providers Care Hot Metal Mixer Operator Helper Name Role Phone Joaquin Barragan Primary Care Provider [phone] Allergies Active Allergy Reactions Criticality Noted Date Comments Bee Venom Swelling 05/15/2021 Influenza Virus Vaccine Swelling 05/15/2021 Medications HYDROcodone-giovanni taminophen (NORCO) 5-325 MG TabletIndicatio ns:Left genital labial abscess Take 1-2 Tablets by mouth every 6 hours as needed for Moderate or more severe pain. 12 Tablet 05/15/2021 Active Social History Tobacco Use Types Packs/Day Years Used Date Smoking Tobacco: Every Day Cigarettes Smokeless Tobacco: Never Comments No Sex and Gender Information Value Date Recorded Sex Assigned at Not on file Legal Sex Female 11:14 PM CDT Gender Identity Not on file Sexual Orientation Not on file Last Filed Vital Signs Vital Sign Reading Time Taken Comments Blood Pressure 118/83 05/15/2021 2:50 PM TOWN PLANNER Pulse 90 05/15/2021 2:50 PM TOWN PLANNER Temperature 37.1 C (98.8 F) 05/15/2021 1:24 PM TOWN PLANNER Respiratory Rate 16 05/15/2021 2:50 PM TOWN PLANNER Oxygen Saturation 99% 05/15/2021 2:50 PM TOWN PLANNER Inhaled Oxygen Concentration - - Weight 85.7 kg (189 lb) 05/15/2021 1:24 PM TOWN PLANNER Height 170.2 cm (5' 7 ) 05/15/2021 1:24 PM TOWN PLANNER Body Mass Index 29.6 05/15/2021 1:24 PM TOWN PLANNER Plan of Treatment Health Maintenance Due Date Last Done Comments Hepatitis C Virus (HCV) Screening 1982 TdaP Immunization 1982 Hepatitis B Immunization (1 of 3 - 19+ 3-dose series) 2001 Pap Smear 08/15/2003 Cervical Cancer Screening (CCS) 2012 HPV/Cotest 2012 Discussion re Starting/Frequ ency of Mammograms 2022 Influenza Immunization (#1) 2024 SARS-COV-2 Immunization ( season) 2024 Respiratory Syncytial Virus (RSV) Immunization (Adult) (1 - 1-dose 75+ series) 2057 Meningococcal Immunization (ACWY) Aged Out No longer eligible based on patient's age to complete this topic Pneumococcal Immunization Combined Aged Out No longer eligible based on patient's age to complete this topic Rotavirus Immunization Aged Out No lo nger eligible based on patient's age to complete this topic Insurance [id number] MEDICAID [facility] Care Teams Hot Metal Mixer Operator Helper Relationship Specialty Start Date End Date Joaquin Barragan PAC [address] [place] [address] PCP - General Physician Differential Specialist 07/30/17
--- OUTSIDE RECORDS SUMMARY | 2024-07-20 10:17 | XMS_ITS ---
Author Organization [facility] Address [address] [place] [address] Phone Care Team Providers Care Net Developer Consultant Name Role Phone Joaquin Barragan Primary Care Provider [phone] [facility] Status:Enrolled (Active) Start date:07/07/2024 Enrollment date:07/07/2024 Related social drivers of health:Intimate Partner Violence, Social Connections, Alcohol Use, Tobacco Use, Financial Resource Strain,Depression, Stress, Physical Activity, Food Insecurity, Transportation Needs, Housing Stability, Utilities Continued Care and Services Coordination
--- OUTSIDE RECORDS SUMMARY | 2024-07-20 10:17 | XMS_ITS | Referral Summary ---
Author Organization [facility] Address [address] [place] [address] Care Team Providers Care Derrick Helper Name Role Phone Joaquin Barragan Primary Care Provider [phone] Kaity Pozo DO Unavailable [phone] Sean Collins [employer] SALES ENGINEER Unavailable [phone] Allergies Active Allergy Reactions Criticality Noted Date Comments Bee Venom Protein (Honey Bee) Swelling Medium Haemophilus Influenzae Type B Swelling Medium 2020 Influenza Virus Vaccines Swelling Medium Venom-Honey Bee Swelling Medium 05/15/2021 Venom-Wasp Swelling Medium 11/06/2022 Medications HYDROcodone-acetami nophen (NORCO) 5-325 mg per tabletIndications:P ain Take 1-2 tablets by mouth every 4 (four) hours as needed for pain 20 tablet [address] (PROTONIX) 40 mg EC tablet Take 1 tablet (40 mg total) by mouth daily 90 tablet 3 3 Active cholestyramine (QUESTRAN) 4 gram packet Take one packet 1-2 times daily to help with chronic diarrhea. Mix in 2 oz of fluid or applesauce, then follow with a bottle of water. 180 packet 3 3 Active bismuth subsalicylate 262 mg tablet,chewable Take 2 tablets (524 mg total) by mouth 4 (four) times a day for 14 days 112 tablet 3 Active ondansetron ODT (ZOFRAN-ODT) 4 mg disintegrating tablet Take 1 tablet (4 mg total) by mouth every 6 (six) hours as needed for nausea or vomiting 20 tablet 1 3 Active azithromycin (Zithromax Z-Shimon) 250 mg tablet Take 1 tablet (250 mg total) by mouth daily Take first 2 tablets together, then 1 every day until finished. 6 tablet 3 Active benzonatate (TESSALON) 100 mg capsuleIndications: Cough Take 1 capsule (100 mg total) by mouth every 8 (eight) hours 21 capsule 3 Active Active Problems Problem Noted Date Diagnosed Date Cholecystitis, chronic 11/06/2022 Helicobacter pylori infection 11/06/2022 Acute constipation 01/22/2021 Change in bowel habits 01/22/2021 Dyspepsia 01/22/2021 Gallstones 01/22/2021 Gastroesophageal reflux disease 01/22/2021 Encounter for screening for other digestive system disorders 01/22/2021 Nausea and vomiting 01/22/2021 Tobacco use disorder 01/22/2021 Tonsillitis, phlegmonous 02/17/2020 Upper respiratory tract infection due to COVID-1 9 virus 02/17/2020 Trigger middle finger of left hand 01/08/2017 Viral pharyngitis Social History Tobacco Use Types Packs/Day Years Used Date Smoking Tobacco: Every Day Cigarettes Smokeless Tobacco: Never Tobacco Cessation:Ready to Q uit: Not Asked; Counseling Given: Not Answered Alcohol Use Standard Drinks/Week Comments Yes 0 (1 standard drink = 0.6 oz pur e alcohol) AUDIT-C Answer Date Recorded Q1: How often do you have a drink containing alc ohol? Monthly or less 02/05/2023 Average Number of Drinks Not on file 023 Frequency of Binge Drinking Not on file 01/09 Personal Safety Answer Date Recorded Have you ever been in or are you currently in a harmful physical or emotional relationship or is someone making you feel afraid or unsafe? Denies 02/28/2023 Comments No Sex and Gender Information Value Date Recorded Sex Assigned at Not on file Legal Sex Female 4:44 PM PROOF PASSER Gender Identity Not on file Sexual Orientation Not on file Last Filed Vital Signs Vital Sign Reading Time Taken Comments Blood Pressure 138/78 02/28/2023 9:28 AM CDT Pulse 74 02/28/2023 9:28 AM CDT Temperature 36.2 C (97.2 F) 02/28/2023 9:28 AM CDT Respiratory Rate 18 02/28/2023 9:28 AM CDT Oxygen Saturation 100% 02/28/2023 9:28 AM CDT Inhaled Oxygen Concentration - - Weight 89.4 kg (197 lb) 02/28/2023 7:42 AM CDT Height 167.6 cm (5' 6 ) 02/28/2023 7:42 AM CDT Body Mass Index 31.8 02/28/2023 7:42 AM CDT Plan of Treatment Not on file Medical Devices Implanted Type Area Early Childhood Coordinator Device Identifier Shelf Expiration Date Model / Serial / Lot [employer]ck Hem-O-Adeola Ligate Nonabsorbable Cartridge Medium Large Latex Free [id number] - [id number] Implanted:Qty: 1 on 11/11/2022 by Denton Ramírez MD at [facility] N/A: Abdomen [employer] 09/05/2027 [id number] / / [id number] Description:6 clips used Procedures Procedure Name Priority Date/Time Associated Diagnosis Comments SCREENING MAMMOGRAM BILATERAL W VIRGILIO Schedule Routine, Read Routine (OP Routine) 04/05/2023 2:11 PM CDT Screening mammogram, encounter for from Last 3 Months or Most Recently Relevant to Health Maintenance Results * Screening Mammogram Bilateral W Virgilio (04/05/2023 2:11 PM CDT) Anatomical Region Laterality Modality Breast Bilateral Mammography 04/05/2023 2:37 PM CDT Impressions 04/05/2023 2:37 PM CDT There is no mammographic evidence of malignancy. A 1 year screening mammogram is recommended. BI-RADS: 1 - Negative. The patient has been or will be contacted. The patient will be entered into a reminder system with a target due date of 1 year for her next mammogram. Electronically signed by: JING Faulkner 04/05/2023 2:37 PM CDT EXAMINATION: SCREENING MAMMOGRAM BILATERAL W VIRGILIO ORDERING HEALTHCARE PROVIDER: SELF SCREENING MAMMOGRAM HISTORY: Routine screening mammography. COMPARISON: This is patient's baseline mammogram. TECHNIQUE: CC and MLO views of both breasts were obtained with digital technique using digital breast tomosynthesis with C view. Computer aided detection was utilized. FINDINGS: DENSITY: The breasts have scattered areas of fibroglandular density. BREASTS: There are no suspicious masses, suspicious calcifications, or other suspicious findings in either breast. us Self Screening Mammogram IMG MAMMO PROCEDURES Fi nal Result from Last 3 Months or Most Recently Relevant to Health Maintenance Insurance [facility] Advance Directives For more information, please contact: [phone] * Full Code (Latest Code Status on File) Date Activated Date Inactivated Comments 01/30/2021 12:35 PM 01/30/2021 7:49 PM * Full Code Date Activated Date Inactivated Comments 01/30/2021 12:34 PM 01/30/2021 12:34 PM * Full Code Date Activated Date Inactivated Comments 02/17/2020 10:58 AM 02/18/2020 5:55 PM Care Teams Derrick Helper Relationship Specialty Start Date End Date Joaquin Barragan PA [address] [place] [address] PCP - General 09/06/16 Kaity Pozo DO [address] [place] [address] Consulting Physician Otolaryngology 02/18/20 Sean Collins NP [address] [place] [address] Nurse Practitioner Family Practice 11/07/22
--- OUTSIDE RECORDS SUMMARY | 2024-07-20 10:17 | XMS_ITS | Continuity of Care Document ---
Author Name Tadeo Corbin Address [address] [place] [address] Organization Unknown Address [address] [place] [address] Medications Problems
--- OUTSIDE RECORDS SUMMARY | 2024-07-20 10:17 | XMS_ITS | Clinical Summary ---
Author Organization [facility] Address [address] [place] [address] Care Team Providers Care Transportation Maintenance Specialist Name Role Phone Joaquin Barragan Primary Care Provider [phone] Kaity Pozo DO Unavailable [phone] Sean Collins CLINICAL SAFETY SPECIALIST Unavailable [phone] Allergies Active Allergy Reactions Criticality Noted Date [...] finger of left hand 01/08/2017 Viral pharyngitis Surgical History Surgery Date Site/Laterality Comments OTHER SURGICAL HISTORY Left ctr release, ulnar nerve release wrist and elbow CARPAL TUNNEL RELEASE Left TRIGGER FINGER RELEASE Left middle finger TUBAL LIGATION COLONOSCOPY 07/10/2015 - 08/07/2015 ABLATION CHOLECYSTECTOMY 11/11/2022 Medical History Medical History Date Comments H. 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 Gender Identity Not on file Sexual Orientation Not on file Obstetrics History Last Filed Vital Signs Vital Sign Reading [...] 02/28/2023 7:42 AM CDT Plan of Treatment Health Maintenance Due Date Last Done Comments Cervical Cancer Screening 1982 Depression Screening 1982 Hepatitis C Screening 1982 Pneumococcal vaccine <65 (1 of 2 - PCV) 1988 Varicella Vaccines (1 of 2 - 13+ 2-dose series) 08/15/1995 Hepatitis B Screening 2000 Regular Well Visit/Exam 18-64 2000 Influenza Vaccine (#1) 2024 Breast Cancer Screening-Mammogram 04/05/2024 023 DTaP/Tdap/Td Vaccine (2 - Td or Tdap) 09/14/2029 09/15/2019 HPV Vaccines Aged Out No longer eligi ble based on patient's age to complete this topic Medical Devices Implanted Type Area Naval Aircrewman Operator Device Identifier Shelf Expiration Date Model / Serial / Lot [employer] Weck Hem-O-Adeola Ligate Nonabsorbable Cartridge Medium Large Latex Free [id number] - [id number] Implanted:Qty: 1 on 11/11/2022 by Denton Ramírez MD at [facility] N/A: Abdomen [employer] 09/05/2027 [id number] / / [id number] Description:6 clips used Procedures Procedure Name [...] Most Recently Relevant to Health Maintenance Insurance [facility] Advance Directives For more information, please contact: [phone] * Full Code (Latest Code Status on File) Date Activated Date Inactivated Comments 01/30/2021 12:35 PM 01/30/2021 7:49 PM * Full Code Date Activated Date Inactivated Comments 01/30/2021 12:34 PM 01/30/2021 12:34 PM * Full Code Date Activated Date Inactivated Comments 02/17/2020 10:58 AM 02/18/2020 5:55 PM Care Teams Transportation Maintenance Specialist Relationship Specialty Start Date End Date Joaquin Barragan PA [address] [place] [address] PCP - General 09/06/16 Kaity Pozo DO [address] [place] [address] Consulting Physician Otolaryngology 02/18/20 Sean Collins NP [address] [place] [address] Nurse Practitioner Family Practice 11/07/22
== END 2024-07-20 09:49 | disposition home or self-care (01) ==
PROVIDERS: Emergency Provider Nurse Practitioner; PCP Physician Assistant
DX: N61.0 Mastitis without abscess (principal)
CPT/HCPCS: 99213; G0463